=== PATIENT | male | born 1985 | race Caucasian/White ===

== ENCOUNTER 2022-12-29 18:35 | Emergency (ER) | payer OTHER, SELFPAY ==
[2022-12-29 18:43] VITALS: BP 129/74; PULSE 86; RESP 18; TEMP 36.9; O2SAT 96; BMI 30.6
--- NOTE | 2022-12-29 19:16 | ED_ITS ---
HPI - General Adult General Chief complaint: Fever Stated complaint: Fever, vomiting Time Seen by Provider: 12/29/22 18:46 Source: patient Mode of arrival: ambulatory Limitations: no limitations History of Present Illness HPI narrative: 37-year-old male coming in today concerned about nausea , vomiting and diarrhea. he has vomited multiple times throughout the night and has had multiple bouts of watery diarrhea. No blood in his vomit or stool. All started late last evening after going out to eat. Continue throughout the night and into this morning. He states that he has not vomited since this morning and has not had any diarrhea now for several hours. He is concerned because he feels wiped out. He is complaining of a headache. He states that he had a fever today of 102 that responded to Tylenol. He has been able to keep Tylenol down for the last several hours. He is afraid to eat or drink anything else. He states that his child had similar symptoms about a week and half ago. Patient takes no medications, has history of gastric bypass. Related Data Previous Rx's Medication Instructions Recorded ondansetron 4 mg disintegrating 4 mg PO Q8H PRN nausea and 12/29/22 tablet vomiting #10 tabs Allergies Allergy/AdvReac Type Severity Reaction Status Date / Time Penicillins Allergy Verified 12/29/22 18:43 shellfish derived Allergy Verified 12/29/22 18:43 Sulfa (Sulfonamide Allergy Verified 12/29/22 18:43 Antibiotics) Review of Systems Status of ROS: Reports: 10 or more systems reviewed and unremarkable except as noted in History and below [facility] Social History Smoking Status: Never smoker Do you use any of these nicotine containing products: None How often do you have a drink containing alcohol: never AUDIT-C Alcohol total score: 0 Non-prescribed substance use: denies use Exam Narrative: Exam Narrative: Well-nourished well-developed patient in no acute distress. Alert and oriented. Answers questions appropriately. Mood and affect are appropriate. Thoughts are goal oriented and rational. No tangential or magical thinking noted. Patient speaks in full sentences without needing to catch their breath. HEENT: Normocephalic atraumatic. Pupils are equally round reactive to light. Extraocular muscles are intact. Conjunctivae are moist without any icterus noted. Moist mucous membranes. Posterior pharynx is normal. Neck is soft without any lymphadenopathy or thyromegaly. No masses are appreciated. Cardiovascular: Heart is regular rate and rhythm S1 and S2 are present without any murmurs. Lungs: Clear to auscultation bilaterally no wheezes rhonchi or rales are appreciated. Patient takes deep breaths without any discomfort. Abdomen: Soft and nontender nondistended with normal bowel sounds. No guarding or rebound. No masses or organomegaly appreciated. Extremities: Bilateral lower extremities are without edema. Normal DP and PT pulses. Skin: Well perfused without any obvious rashes. Const: Vital Signs, click to edit/add: Vital Signs - 24 hr 12/29/22 18:43 12/29/22 19:28 12/29/22 19:45 Temperature 98.5 F 100.6 F H Pulse Rate [Right Pulse Oximeter] 86 83 Respiratory Rate 18 18 20 Blood Pressure [Ri ght Upper Arm] 129/74 102/63 Pulse Oximetry 96 99 98 Oxygen Delivery Me thod Room Air Room Air Room Air Course Course Hospital Course: IV was established and patient was treated with L of normal saline, Toradol and Zofran. he did feel better after treatment. His temperature went up to 100.6, he received Tylenol. Lab work was unremarkable. Vital Signs Vital signs: Initial Vital Signs Temperature 98.5 F 12/29/22 18:43 Temperature Source Temporal Artery Scan 12/29/22 18:43 Pulse Rate 86 12/29/22 18:43 Respiratory Rate 18 12/29/22 18:43 Blood Pressure 129/74 12/29/22 18:43 Blood Pressure Mean 92 12/29/22 18:43 Blood Pressure Position Sitting 12/29/22 18:43 Pulse Oximetry 96 12/29/22 18:43 Oxygen Delivery Method Room Air 12/29/22 18:43 Vital Signs Temperature 98.5 F 12/29/22 18:43 Pulse Rate 86 12/29/22 18:43 Respiratory Rate 18 12/29/22 18:43 Blood Pressure 129/74 12/29/22 18:43 Pulse Oximetry 96 12/29/22 18:43 Oxygen Delivery Method Room Air 12/29/22 18:43 Temperature 100.6 F H 12/29/22 19:45 Pulse Rate 83 12/29/22 19:45 Respiratory Rate 20 12/29/22 19:45 Blood Pressure 102/63 12/29/22 19:45 Pulse Oximetry 98 12/29/22 19:45 Oxygen Delivery Method Room Air 12/29/22 19:45 Medical Decision Making MDM Narrative Medical decision making narrative: 37-year-old male with gastroenteritis. discharged home on Zofran, discussed frequent hydration with small amounts of fluids during the day. Discussed reasons for follow-up and returning to the ER. Patient was in agreement and had no other questions. Lab Data Lab results reviewed: Yes I reviewed the patient's lab results Labs: Lab Results 12/29/22 Range/Units 19:13 WBC 7.23 (4.50-11.00) K/uL RBC 4.96 (4.30-5.90) m/uL Hgb 14.7 (13.5-17.5) gm/dL Hct 43.4 (37.0-53.0) % MCV 88 (80-100) fL MCH 30 (26-34) pg MCHC 34 (32-36) gm/dL RDW Coeff of [place] 12.5 (11.5-15.5) % Plt Count 180 (140-440) K/uL Neut % (Auto) 85.2 H (42.0-72.0) % Lymph % (Auto) 6.2 L (20-44) % [place] % (Auto) 8.4 (0.0-11.0) % Eos % (Auto) 0.0 (0.0-7.0) % Baso % (Auto) 0.1 (0.0-3.0) % Neut # (Auto) 6.20 (1.7-7.0) K/uL Lymph # (Auto) 0.40 L (0.90-2.90) K/uL [place] # (Auto) 0.60 (0.00-0.90) K/UL Eos # (Auto) 0.00 (0.00-0.50) K/uL Baso # (Auto) 0.01 (0.00-0.30) K/uL Sodium 136 (135-149) mmol/L Potassium 3.5 L (3.6-5.1) mmol/L Chloride 103 (96-114) mmol/L Carbon Dioxide 25 (20-32) mmol/L BUN 9 (5-24) mg/dL Creatinine 0.7 (0.5-1.5) mg/dL Estimated Creat Clear 167.99 Estimated GFR 122 ml/min Glucose 111 (60-115) mg/dL Calcium 8.9 (8.4-10.6) mg/dL Total Bilirubin 2.0 H (0.1-1.5) mg/dL Direct Bilirubin 0.2 (0.0-0.5) mg/dL AST 31 (12-35) U/L ALT 23 (4-50) U/L Alkaline Phosphatase 62 (40-150) U/L Total Protein 6.8 (6.0-8.3) g/dL Albumin 4.1 (3.3-5.0) g/dL Lipase 30 (23-300) U/L Discharge Plan Discharge Clinical Impression: Gastroenteritis Patient Disposition: Home, Self-Care Condition: Stable Additional Instructions: make sure to stay hydrated by drinking small amounts of fluids very frequently throughout the day. Okay to use ibuprofen and Tylenol as needed for elevated temperatures. Prescriptions: New ondansetron 4 mg tablet,disintegrating 4 mg PO Q8H PRN (Reason: nausea and vomiting) Qty: 10 0RF Stand Alone Forms: [facility] Info Instructions
[2022-12-29] MEDS: 0.9 % SODIUM CHLORIDE 1000 ml 1,000 ML IV (19:17)
[2022-12-29] MEDS: ONDANSETRON 2 MG/ML inj 4 MG IVP (19:17)
[2022-12-29] MEDS: KETOROLAC 30 MG/ML inj IVP (19:17)
[2022-12-29 19:20] LABS: Basophils Absolute Auto 0.01 K/uL (0.00-0.30); Basophils Percent Auto 0.1 % (0.0-3.0); Hematocrit 43.4 % (37.0-53.0); Hemoglobin* 14.7 gm/dL (13.5-17.5); Immature Granulocytes Abs Auto 0.01 K/uL (0.00-0.30); Immature Granulocytes Pct Auto 0.1 %; Lymphocytes Percent Auto 6.2 % (20-44); Mean Corpuscular HGB Conc 34 gm/dL (32-36); Mean Corpuscular Hemoglobin 30 pg (26-34); Mean Corpuscular Volume 88 fL (80-100); Monocytes Percent Auto 8.4 % (0.0-11.0); Neutrophils Percent Auto 85.2 % (42.0-72.0); Platelet Count* 180 K/uL (140-440); RDW Coefficient of Variation % 12.5 % (11.5-15.5); Red Blood Count 4.96 m/uL (4.30-5.90); White Blood Count* 7.23 K/uL (4.50-11.00)
[2022-12-29 19:28] VITALS: RESP 18; O2SAT 99
[2022-12-29 19:35] LABS: Albumin* 4.1 g/dL (3.3-5.0); Chloride* 103 mmol/L (96-114); Potassium* 3.5 mmol/L (3.6-5.1); Sodium* 136 mmol/L (135-149)
[2022-12-29 19:37] LABS: Creatinine* 0.7 mg/dL (0.5-1.5); Est. Creatinine Clearance* 167.99; Estimated Glomerular Filt Rate 122 ml/min
[2022-12-29 19:38] LABS: Alanine Aminotransferase* 23 U/L (4-50); Alkaline Phosphatase* 62 U/L (40-150); Aspartate Amino Transferase* 31 U/L (12-35); Bilirubin Direct* 0.2 mg/dL (0.0-0.5); Blood Urea Nitrogen* 9 mg/dL (5-24); Calcium* 8.9 mg/dL (8.4-10.6); Carbon Dioxide* 25 mmol/L (20-32); Glucose* 111 mg/dL (60-115); Lipase* 30 U/L (23-300); Total Protein* 6.8 g/dL (6.0-8.3)
[2022-12-29 19:45] VITALS: BP 102/63; PULSE 83; RESP 20; TEMP 38.1; O2SAT 98
[2022-12-29 19:57] LABS: Slide Review Reflex No
[2022-12-29] MEDS: ACETAMINOPHEN 500 MG TABLET 1000 MG PO (20:11)
== END 2022-12-29 20:19 | disposition home or self-care (01) ==
PROVIDERS: Emergency Provider Family Medicine
DX: K52.9 Noninfective gastroenteritis and colitis, unspecified (principal)
CPT/HCPCS: 36415; 80048; 80076; 83690; 85025; 96374; 96375; 99283; 99284; A9270; J1885; J2405; J7030

== ENCOUNTER 2023-03-30 10:24 | Emergency (ER) | payer OTHER, SELFPAY ==
[2023-03-30 10:30] VITALS: BP 109/68; PULSE 75; RESP 18; TEMP 36.5; O2SAT 98; BMI 30.2
--- NOTE | 2023-03-30 10:59 | ED.BACK ---
HPI - Back Pain/Injury General Chief Complaint: Back Injury/Pain Stated Complaint: back pain/yesterday at work Time Seen by Provider: 03/30/23 10:52 History of Present Illness HPI Narrative: This 38-year-old male comes in reporting low back pain after an injury that occurred yesterday. 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 He does not report any pain radiating down either leg. He has normal range of motion but reports pain in his low back. Related Data Previous Rx's Medication Instructions Recorded ondansetron 4 mg disintegrating 4 mg PO Q8H PRN nausea and 12/29/22 tablet vomiting #10 tabs cyclobenzaprine 10 mg tablet 10 mg PO TID #15 tabs 03/30/23 ketorolac 10 mg tablet 10 mg PO Q8H 5 days #15 tabs 03/30/23 Allergies Allergy/AdvReac Type Severity Reaction Status Date / Time Penicillins Allergy Verified 12/29/22 18:43 shellfish derived Allergy Verified 12/29/22 18:43 Sulfa (Sulfonamide Allergy Verified 12/29/22 18:43 Antibiotics) Review of Systems Status of ROS: Reports: 10 or more systems reviewed and unremarkable except as noted in History and below Narrative: Constitutional: No fevers, no weight gain or loss. Eyes: No discharge. No vision changes. HENT: No congestion, no sore throat, no ear pain. Cardiovascular: No chest pain, no palpitations. Respiratory: No shortness of breath, no wheezes, no cough. Gastrointestinal: No abdominal pain, no vomiting, no diarrhea. Genitourinary: No dysuria, no hematuria. Musculoskeletal: Normal range of motion. Low back pain as described above. Pain does not radiate down either leg. Skin: No rashes, no pruritis. Neurological: No dizziness, weakness, sensory change, speech change. Endo/Heme/Allergies: No bruising or bleeding. No polydipsia. Pysch: no suicidality, no anxiety, no insomnia. All other systems reviewed and are negative. [facility] Social History Smoking Status: Current some day smoker Do you use any of these nicotine containing products: Vaping Products Second hand tobacco smoke exposure: No How often do you have a drink containing alcohol: never How often do you have six or more drinks on one occasion: Never AUDIT-C Alcohol total score: 0 Non-prescribed substance use: denies use service: No Exam Narrative: Exam Narrative: Constitutional: Well-developed, well-nourished, no acute distress. HEENT: Normocephalic, atraumatic. Neck: Normal range of motion. Nontender. Supple. Heart: Intact distal pulses. Lungs: No chest discomfort. No wheezes, rhonchi, or rales. Abdomen: Nontender. Back: Normal range of motion. Diffuse pain localized across the lower back. No pain radiating down either leg. Extremities: Normal range of motion. No injury. Skin: Intact. No rash. Warm. No erythema or pallor. Neurologic: No altered sensation. No weakness. Alert and oriented. Psychiatric: No suicidality. No anxiety or depression. No insomnia. Nursing notes and vitals signs are reviewed. Const: Vital Signs, click to edit/add: Vital Signs - 24 hr 03/30/23 10:30 Temperature 97.7 F Pulse Rate [Pulse Oximeter] 75 Respiratory Rate 18 Blood Pressure [Ri ght Upper Arm] 109/68 Pulse Oximetry 98 Oxygen Delivery Me thod Room Air Course Vital Signs Vital signs: Initial Vital Signs Temperature 97.7 F 03/30/23 10:30 Temperature Source Temporal Artery Scan 03/30/23 10:30 Pulse Rate 75 03/30/23 10:30 Pulse Rhythm Regular 03/30/23 10:30 Respiratory Rate 18 03/30/23 10:30 Blood Pressure 109/68 03/30/23 10:30 Blood Pressure Mean 81 03/30/23 10:30 Blood Pressure Position Supine 03/30/23 10:30 Pulse Oximetry 98 03/30/23 10:30 Oxygen Delivery Method Room Air 03/30/23 10:30 Vital Signs Temperature 97.7 F 03/30/23 10:30 Pulse Rate 75 03/30/23 10:30 Respiratory Rate 18 03/30/23 10:30 Blood Pressure 109/68 03/30/23 10:30 Pulse Oximetry 98 03/30/23 10:30 Oxygen Delivery Method Room Air 03/30/23 10:30 Temperature 97.7 F 03/30/23 10:30 Pulse Rate 75 03/30/23 10:30 Respiratory Rate 18 03/30/23 10:30 Blood Pressure 109/68 03/30/23 10:30 Pulse Oximetry 98 03/30/23 10:30 Oxygen Delivery Method Room Air 03/30/23 10:30 MDM - Back Pain/Injury MDM Narrative Medical decision making narrative: This 38-year-old male has low back pain due to a muscle strain when lifting something heavy yesterday in an awkward position. He is not showing any signs of radiculopathy. There was not a mechanism of injury that mandates imaging studies at this time. The patient received prescriptions for Toradol and Flexeril. I recommended following [facility] with [facility] if not improving. Discharge Plan Discharge Clinical Impression: Strain of lumbar region Patient Disposition: Home, Self-Care Condition: Unchanged Additional Instructions: Take medication as needed and directed. Increase activity as tolerated. Follow up with [facility] if not improving. Call [phone] for appointment. Prescriptions: New cyclobenzaprine 10 mg tablet 10 mg PO TID Qty: 15 0RF ketorolac 10 mg tablet 10 mg PO Q8H 5 Days Qty: 15 0RF No Action ondansetron 4 mg tablet,disintegrating 4 mg PO Q8H PRN (Reason: nausea and vomiting) Qty: 10 0RF Follow Up/Referrals: Provider,Not a Local [Primary Care Provider] - Stand Alone Forms: [employer] Info Instructions
== END 2023-03-30 11:17 | disposition home or self-care (01) ==
LOC: ED 11:11
PROVIDERS: Emergency Provider Emergency Medicine Emergency Medical Services
DX: S39.012A Strain of muscle, fascia and tendon of lower back, initial encounter (principal); X50.0XXA Overexertion from strenuous movement or load, initial encounter
CPT/HCPCS: 99283; 99284

== ENCOUNTER 2023-06-16 21:59 | Emergency (ER) | payer OTHER, SELFPAY ==
[2023-06-16 22:13] VITALS: BP 110/95; PULSE 107; RESP 16; TEMP 37.6; O2SAT 96; BMI 32.1
--- NOTE | 2023-06-16 22:44 | ED_ITS ---
HPI - General Adult General Date Seen: 06/16/23 Chief complaint: Headache/Migraine Stated complaint: chills, body and headache Time Seen by Provider: 06/16/23 22:32 History of Present Illness HPI narrative: This is a 38-year-old generally healthy male accompanied to the ER today by his girlfriend. He is here with symptoms including (most prominently) headache, along with nasal congestion, mild sore throat, dry cough. Symptoms began yesterday morning with a mild stuffy nose. Yesterday evening is at a began. It started gradually. It got worse overnight was fairly bothersome today. He took some Midol and was able to go to work. Today he had ongoing stuffy nose, mild dry cough. No chest pain or shortness of breath. Mild sore throat. No nausea or vomiting. No rash. He had similar issues and subjectively felt hot but did not have an objectively measured high fever. This evening his headache is worsened more bother him some. He does not feel like it be able to sleep. He says it is like an intermittent pressure affecting both sides of his forehead. No neck stiffness. No confusion. No vomiting. No blurry vision. No rash. He had 1 co-worker who was sick last week but he does not know for sure what illness his co-worker had Related Data Previous Rx's Medication Instructions Recorded ondansetron 4 mg disintegrating 4 mg PO Q8H PRN nausea and 12/29/22 tablet vomiting #10 tabs Allergies Allergy/AdvReac Type Severity Reaction Status Date / Time Penicillins Allergy Verified 12/29/22 18:43 shellfish derived Allergy Verified 12/29/22 18:43 Sulfa (Sulfonamide Allergy Verified 12/29/22 18:43 Antibiotics) [facility] Social History Smoking Status: Current some day smoker Do you use any of these nicotine containing products: Vaping Products Second hand tobacco smoke exposure: No How often do you have a drink containing alcohol: never How often do you have six or more drinks on one occasion: Never AUDIT-C Alcohol total score: 0 Non-prescribed substance use: denies use service: No Exam Narrative: Exam Narrative: Constitutional: Appears well-developed and well-nourished. Alert. Conversant. Non toxic. HENT: Head: Atraumatic. No depressed skull fracture, Raccoon Eyes, Chowdary's sign, or hemotympanum. Face normal. TMs normal Right ear: Mastoid, pinna, canal normal. TM is erythematous and bulging. There is some opaque fluid behind the TM. Left ear: Mastoid and PIN are normal. Small amount of dark brown material in the canal which could be cerumen or possibly a small amount of scab blood. TM is actually normal. Nose: Nonpurulent rhinorrhea, otherwise Nose normal. Mouth/Throat: Oral mucosa is clear and moist. no trismus. Pharynx normal. Tonsils symmetric. No tonsillar enlargement, erythema, or exudate. Eyes: Conjunctivae normal. EOM normal. Pupils equal, round, and reactive to light. No scleral icterus. Neck: Normal range of motion. Neck supple. No tracheal deviation present. No stiffness or meningismus. Cardiovascular: Normal rate, regular rhythm. No gallop. No friction rub. No murmur heard. Symmetric radial artery pulses Pulmonary/Chest: Effort normal. No stridor. No respiratory distress. No wheezes. No rales. No rhonchi . No tenderness. Musculoskeletal: RUE: Normal range of motion. No tenderness. No deformity LUE: Normal range of motion. No tenderness. No deformity RLE: Normal range of motion. No edema. No tenderness. No deformity LLE: Normal range of motion. No edema. No tenderness. No deformity Lymph: No cervical adenopathy. Neurological: Alert and oriented to person, place, and time. Normal strength. CN II-VII intact. No sensory deficit. GCS eye subscore is 4. GCS verbal subscore is 5. GCS motor subscore is 6. Normal coordination Skin: Skin is warm and dry. No rash noted. No pallor. Normal capillary refill. Psychiatric: Normal mood. Normal affect. Const: Vital Signs, click to edit/add: Vital Signs - 24 hr 06/16/23 22:13 Temperature 99.7 F H Pulse Rate [Pulse Oximeter] 107 H Respiratory Rate 16 Blood Pressure [Ri ght Upper Arm] 110/95 H Pulse Oximetry 96 Oxygen Delivery Me thod Room Air Course Course ED Course: Recheck-says his headache is getting better after the Toradol. Vital Signs Vital signs: Initial Vital Signs Temperature 99.7 F H 06/16/23 22:13 Temperature Source Temporal Artery Scan 06/16/23 22:13 Pulse Rate 107 H 06/16/23 22:13 Pulse Rhythm Regular 06/16/23 22:13 Respiratory Rate 16 06/16/23 22:13 Blood Pressure 110/95 H 06/16/23 22:13 Blood Pressure Mean 100 06/16/23 22:13 Blood Pressure Position Sitting 06/16/23 22:13 Pulse Oximetry 96 06/16/23 22:13 Oxygen Delivery Method Room Air 06/16/23 22:13 Vital Signs Temperature 99.7 F H 06/16/23 22:13 Pulse Rate 107 H 06/16/23 22:13 Respiratory Rate 16 06/16/23 22:13 Blood Pressure 110/95 H 06/16/23 22:13 Pulse Oximetry 96 06/16/23 22:13 Oxygen Delivery Method Room Air 06/16/23 22:13 Temperature 99.7 F H 06/16/23 22:13 Pulse Rate 107 H 06/16/23 22:13 Respiratory Rate 16 06/16/23 22:13 Blood Pressure 110/95 H 06/16/23 22:13 Pulse Oximetry 96 06/16/23 22:13 Oxygen Delivery Method Room Air 06/16/23 22:13 Medications Administered Medications: Discontinued Medications Generic Name Dose Route Start Last Admin Trade Name Freq PRN Reason Stop Dose Admin Sodium Chloride 1,000 mls @ 1,000 mls/hr 06/16/23 22:45 06/17/23 00:09 0.9 % Sodium Chloride 1000 Ml IV 06/16/23 23:44 Infused .Q1H SOMMER Infusion Ketorolac Tromethamine 15 mg 06/16/23 22:43 06/16/23 23:03 Ketorolac 15 Mg/Ml Inj IVP 06/16/23 22:44 15 mg ONCE ONE Administration Metoclopramide HCl 10 mg 06/16/23 22:43 06/16/23 23:13 Metoclopramide Hcl 5 Mg/Ml Inj IVP 06/16/23 22:44 10 mg ONCE ONE Administration Medical Decision Making MDM Narrative Medical decision making narrative: This patient presents for evaluation of headache associated with body aches, chills, cough, nasal congestion, mild sore throat. This is consistent with an upper respiratory tract infection. Viral testing positive for coronavirus but negative for influenza a and negative for RSV.. There is no signs at this point of serious bacterial infection such as OM, RPA, epiglottitis, [employer], strep pharyngitis, pneumonia, sinusitis, meningitis, bacteremia, serious bacterial infection. Given clear lungs, fever curve, no hypoxia and no respiratory distress I do not feel a CXR is indicated at this point as the probability of bacterial pneumonia is very unlikely. There are no gastrointestinal symptoms at this point. Headache was uncomfortable for the patient and not responding to at home remedies, prompting his visit here to the ER. Headache is much improved after Toradol and fluids administered here in the ER. He feels comfortable discharging to home. At this point I do not think the headache represents a serious secondary pathology such as meningitis, subarachnoid, stroke, intracranial hemorrhage. At this point I do not think he needs advanced imaging or lumbar puncture. Suspect the headache is probably related to his coronavirus. In terms of treating COVID he has been vaccinated had 1 booster but has not gotten his most recent boosters. He has had 1 previous coronavirus infection. He is otherwise healthy with no long-term medical conditions or any underlying heart or lung disease. Overall is not a ?high risk? patient for severe illness from COVID. Therefore, although he is in the 1st 5 days of illness, he would not be meet criteria for treatment with Paxlovid. Discussed with the patient and his girlfriend potential risk of worsening is low (but not 0). Precautions for return to the ER reviewed. Close followup with primary care physician is indicated. Return to ED for fever > 103, protracted vomiting, confusion, worsening cough, trouble breathing, hypoxia, or other worsening. Supportive therapy with fluids, rest, isolation. Acetaminophen or ibuprofen if needed for body aches and headache. Prescription for [place] ([employer], 10 tabs) provided for breakthrough pain. Precautions for return to the ER. Lab Data Labs: Lab Results 06/16/23 Range/Units 22:10 SARS-CoV-2 (PCR) POSITIVE SARS-CoV-2 A (Negative) Influenza Type A (PCR) Negative PCR FLU A (Negative) Influenza Type B (PCR) Negative PCR FLU B (Negative) RSV (PCR) Negative PCR RSV (Negative) Discharge Plan Discharge Clinical Impression: COVID-19, Headache Patient Disposition: Home, Self-Care Condition: Stable Instructions: COVID-19 (Coronavirus Disease 2019) (ED), COVID-19: Slow the Coronavirus Spread (ED) Additional Instructions: As we discussed, please return to the ER right away if you have worsening symptoms especially severe headache, confusion, worsening cough or trouble breathing, chest pain, high fever, dehydration, or oxygen measurements below 90%. Drink plenty of fluids. Use [id number] medications such as acetaminophen or ibuprofen if needed for headache and body aches. Use prescription pain killers ([place]) if needed for severe pain. Be careful with [place] because it causes drowsiness, dizziness, and you should not drive. [place] also can cause constipation and can be addictive. Prescriptions: No Action ondansetron 4 mg tablet,disintegrating 4 mg PO Q8H PRN (Reason: nausea and vomiting) Qty: 10 0RF Follow Up/Referrals: Provider,Not a Local [Primary Care Provider] - Stand Alone Forms: [employer] Info Instructions
[2023-06-16 22:52] LABS: PCR FLU A Negative PCR FLU A (Negative); PCR FLU B Negative PCR FLU B (Negative); PCR RSV Negative PCR RSV (Negative)
[2023-06-16 22:54] LABS: SARS PCR* POSITIVE SARS-CoV-2 (Negative)
[2023-06-16] MEDS: KETOROLAC 15 MG/ML inj IVP (23:03)
[2023-06-16] MEDS: 0.9 % SODIUM CHLORIDE 1000 ml 1,000 ML IV (23:03)
[2023-06-16] MEDS: METOCLOPRAMIDE HCL 5 MG/ML INJ 10 MG IVP (23:13)
== END 2023-06-17 00:15 | disposition home or self-care (01) ==
PROVIDERS: Emergency Provider Emergency Medicine
DX: R51.9 Headache, unspecified (principal); U07.1 COVID-19
CPT/HCPCS: 87631; 96374; 96375; 99283; 99284; J1885; J2765; J7030

== ENCOUNTER 2023-06-26 19:19 | Emergency (ER) | payer OTHER, SELFPAY ==
[2023-06-26 19:34] VITALS: BP 111/63; PULSE 111; RESP 18; TEMP 37.7; O2SAT 95
--- NOTE | 2023-06-26 21:55 | ED_ITS ---
HPI - General Adult General Chief complaint: Unspecified Complaint, Adult Stated complaint: Cold Sweats, headache Time Seen by Provider: 06/26/23 21:15 History of Present Illness HPI narrative: This is a generally healthy 38-year-old male who returns to the ER today for evaluation headache, nasal congestion, cough. I saw him here in the ER about 10 days ago with similar symptoms. At that time he was positive for coronavirus. Not falling into a ?high risk? category he was treated supportively. We treated his headache with Toradol, Reglan, Benadryl and improved here in the ER. Discharged home with hydrocodone. He was taking that 3 times a day for a couple of days well as body aches and headache for bad and he says his symptoms were well managed. Says overall his symptoms have gotten quite a bit better. Cough was improved. Headache was gone he was able to go back to work. He still has a mild cough and sore throat. Yesterday he was at work. 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 Ever since then he has had worsening nasal congestion, recurrent cough, and headache. He does not have any neck stiffness. No confusion. No bloody nose. No sore throat. He has mild cough but is not short of breath. No nausea or vomiting. No diarrhea. No rash. No other known new sick exposures but several family members have now fallen ill with coronavirus. Related Data Previous Rx's Medication Instructions Recorded ondansetron 4 mg disintegrating 4 mg PO Q8H PRN nausea and 12/29/22 tablet vomiting #10 tabs Allergies Allergy/AdvReac Type Severity Reaction Status Date / Time Penicillins Allergy Verified 12/29/22 18:43 shellfish derived Allergy Verified 12/29/22 18:43 Sulfa (Sulfonamide Allergy Verified 12/29/22 18:43 Antibiotics) [facility] Social History Smoking Status: Current some day smoker Do you use any of these nicotine containing products: Vaping Products Second hand tobacco smoke exposure: No How often do you have a drink containing alcohol: never How often do you have six or more drinks on one occasion: Never AUDIT-C Alcohol total score: 0 Non-prescribed substance use: denies use service: No Exam Narrative: Exam Narrative: Constitutional: Appears well-developed and well-nourished. Alert. Conversant. Non toxic. He remembers me from before and complements me on my medical care. HENT: Head: Atraumatic. No depressed skull fracture, Raccoon Eyes, Chowdary's sign, or hemotympanum. Face normal. TMs normal Nose: External Nose normal. He does have a small amount of inflammation of the mucosal lining in both nares. No purulent drainage. No epistaxis. Right ear: Mastoid, pinna, canal, TM normal. Left ear: Mastoid, Hanks, canal normal. TM is erythematous, bulging and consistent with otitis media. No evidence for perforation. Mouth/Throat: Oral mucosa is clear and moist. no trismus. Pharynx normal. Tonsils symmetric. No tonsillar enlargement, erythema, or exudate. Eyes: Conjunctivae normal. EOM normal. Pupils equal, round, and reactive to light. No scleral icterus. Neck: Normal range of motion. Neck supple. No tracheal deviation present. Cardiovascular: Normal rate, regular rhythm. No gallop. No friction rub. No murmur heard. Symmetric radial artery pulses Pulmonary/Chest: Effort normal. No stridor. No respiratory distress. No wheezes. No rales. No rhonchi . No tenderness. Abdominal: Soft. No distension. No mass. No tenderness. No rebound. No guarding. Musculoskeletal: RUE: Normal range of motion. No tenderness. No deformity LUE: Normal range of motion. No tenderness. No deformity RLE: Normal range of motion. No edema. No tenderness. No deformity LLE: Normal range of motion. No edema. No tenderness. No deformity Lymph: No cervical adenopathy. Neurological: Alert and oriented to person, place, and time. Normal strength. CN II-VII intact. No sensory deficit. GCS eye subscore is 4. GCS verbal subscore is 5. GCS motor subscore is 6. Normal coordination Skin: Skin is warm and dry. No rash noted. No pallor. Normal capillary refill. Psychiatric: Normal mood. Normal affect. Const: Vital Signs, click to edit/add: Vital Signs - 24 hr 06/26/23 19:34 Temperature 99.9 F H Pulse Rate [Left P ulse Oximeter] 111 H Respiratory Rate 18 Blood Pressure [Ri ght Upper Arm] 111/63 Pulse Oximetry 95 Oxygen Delivery Me thod Room Air Course Vital Signs Vital signs: Initial Vital Signs Temperature 99.9 F H 06/26/23 19:34 Temperature Source Temporal Artery Scan 06/26/23 19:34 Pulse Rate 111 H 06/26/23 19:34 Pulse Rhythm Regular 06/26/23 19:34 Respiratory Rate 18 06/26/23 19:34 Blood Pressure 111/63 06/26/23 19:34 Blood Pressure Mean 79 06/26/23 19:34 Blood Pressure Position Sitting 06/26/23 19:34 Pulse Oximetry 95 06/26/23 19:34 Oxygen Delivery Method Room Air 06/26/23 19:34 Vital Signs Temperature 99.9 F H 06/26/23 19:34 Pulse Rate 111 H 06/26/23 19:34 Respiratory Rate 18 06/26/23 19:34 Blood Pressure 111/63 06/26/23 19:34 Pulse Oximetry 95 06/26/23 19:34 Oxygen Delivery Method Room Air 06/26/23 19:34 Temperature 99.9 F H 06/26/23 19:34 Pulse Rate 111 H 06/26/23 19:34 Respiratory Rate 18 06/26/23 19:34 Blood Pressure 111/63 06/26/23 19:34 Pulse Oximetry 95 06/26/23 19:34 Oxygen Delivery Method Room Air 06/26/23 19:34 Medical Decision Making MDM Narrative Medical decision making narrative: This patient presents for evaluation of headache, nasal congestion, cough, sore throat. He was recently here in the ER about 10 days ago with a similar URI and at that time test positive for COVID. He was treated supportively because he does not meeting the cry teary a for high risk, does not meet criteria for Paxlovid. Symptoms had been improving and then worsened again starting yesterday. With recent positive COVID test will not repeat COVID PCR today. Lung sounds are clear. No evidence for pneumonia. At this point oxygen saturations are normal and no signs of severe life-threatening coronavirus. He does note that his headache is primarily in the facial region this time, whereas previously it has been more diffuse. At this point no evidence for meningitis or encephalitis. Consider possibility for bacterial sinusitis with this biphasic illness after a recent URI. Patient also has exam findings consistent with an otitis media on the left ear. Will treat him with a course of doxycycline for his infection because he is allergic to penicillins. Supportive care with pain medication. Opiate precautions reviewed. Instymeds prescriptions for hydrocodone. There is no signs at this point of serious bacterial infection such as RPA, epiglottitis, [employer], strep pharyngitis, pneumonia, meningitis, bacteremia, serious bacterial infection. Given clear lungs, fever curve, no hypoxia and no respiratory distress I do not feel a CXR is indicated at this point as the probability of bacterial pneumonia is very unlikely. Additionally, community- acquired pneumonia would be covered adequately by prescribed doxycycline. There are no gastrointestinal symptoms at this point and no signs of dehydration. Close followup with primary care physician is indicated. Return to ED for fever > 103, protracted vomiting, confusion, or other worsening. Discharge Plan Discharge Clinical Impression: Acute left otitis media, Headache, Sinusitis Patient Disposition: Home, Self-Care Condition: Stable Instructions: Sinusitis (ED), Ear Infection (ED), Acute Headache (DC) Additional Instructions: As we discussed, please come back to the ER right away if you have worsening headache, confusion, blurry vision, vomiting, fever over 102, neck stiffness, worsening cough or trouble breathing, or if you have any concerns. Use caution with hydrocodone because it can cause drowsiness. Do not drive or operate machinery for 6 hours after taking that medication. Prescriptions: No Action ondansetron 4 mg tablet,disintegrating 4 mg PO Q8H PRN (Reason: nausea and vomiting) Qty: 10 0RF Follow Up/Referrals: Provider,Not a Local [Primary Care Provider] - Stand Alone Forms: [employer] Info Instructions
== END 2023-06-26 22:01 | disposition home or self-care (01) ==
LOC: ED 21:53
PROVIDERS: Emergency Provider Emergency Medicine
DX: H66.92 Otitis media, unspecified, left ear (principal); R51.9 Headache, unspecified; J32.0 Chronic maxillary sinusitis
CPT/HCPCS: 99283

== ENCOUNTER 2023-07-30 19:21 | Emergency (ER) | payer OTHER, SELFPAY ==
[2023-07-30 19:29] VITALS: BP 119/75; PULSE 76; RESP 18; TEMP 36.6; O2SAT 100; BMI 32.1
--- NOTE | 2023-07-30 19:43 | ED_ITS ---
HPI - General Adult General Chief complaint: Head Injury/Pain Stated complaint: head injury Time Seen by Provider: 07/30/23 19:24 Source: patient Mode of arrival: ambulatory Limitations: no limitations History of Present Illness HPI narrative: 38-year-old male presenting today with a laceration of his scalp. He states that he bent over to get something in the garage and hit his head on some metal. This occurred approximately 4 hours ago. He denies headache or confusion. No other concerns. Last tetanus was in 2012. Related Data Previous Rx's Medication Instructions Recorded ondansetron 4 mg disintegrating 4 mg PO Q8H PRN nausea and 12/29/22 tablet vomiting #10 tabs Allergies Allergy/AdvReac Type Severity Reaction Status Date / Time Penicillins Allergy Verified 12/29/22 18:43 shellfish derived Allergy Verified 12/29/22 18:43 Sulfa (Sulfonamide Allergy Verified 12/29/22 18:43 Antibiotics) Review of Systems Status of ROS: Reports: 6 or more systems reviewed and unremarkable except as noted in History and below PFSH PFS Social History Smoking Status: Current some day smoker Do you use any of these nicotine containing products: Vaping Products Second hand tobacco smoke exposure: No How often do you have a drink containing alcohol: never How often do you have six or more drinks on one occasion: Never AUDIT-C Alcohol total score: 0 Non-prescribed substance use: denies use service: No Exam Narrative: Exam Narrative: Well-nourished well-developed patient in no acute distress. Alert and oriented. Answers questions appropriately. Mood and affect are appropriate. Thoughts are goal oriented and rational. No tangential or magical thinking noted. Patient speaks in full sentences without needing to catch his breath. HEENT: Normocephalic. Pupils are equally round reactive to light. Extraocular muscles are intact. Conjunctivae are moist without any icterus noted. Moist mucous membranes. Patient has approximately a 1/2 cm laceration to the top left scalp. Laceration goes through the dermis into the subcutaneous tissue, does not penetrate through the subcutaneous tissue. There is no bone visible. Const: Vital Signs, click to edit/add: Vital Signs - 24 hr 07/30/23 19:29 Temperature 97.9 F Pulse Rate [Pulse Oximeter] 76 Respiratory Rate 18 Blood Pressure [Ri ght Upper Arm] 119/75 Pulse Oximetry 100 Oxygen Delivery Me thod Room Air Course Course ED Course: Laceration was anesthetized lidocaine, wound irrigated and explored. Two sutures with 3-0 Ethilon were placed without difficulty and good skin approximation. Vital Signs Vital signs: Initial Vital Signs Temperature 97.9 F 07/30/23 19:29 Temperature Source Temporal Artery Scan 07/30/23 19:29 Pulse Rate 76 07/30/23 19:29 Respiratory Rate 18 07/30/23 19:29 Blood Pressure 119/75 07/30/23 19:29 Blood Pressure Mean 89 07/30/23 19:29 Blood Pressure Position Sitting 07/30/23 19:29 Pulse Oximetry 100 07/30/23 19:29 Oxygen Delivery Method Room Air 07/30/23 19:29 Vital Signs Temperature 97.9 F 07/30/23 19:29 Pulse Rate 76 07/30/23 19:29 Respiratory Rate 18 07/30/23 19:29 Blood Pressure 119/75 07/30/23 19:29 Pulse Oximetry 100 07/30/23 19:29 Oxygen Delivery Method Room Air 07/30/23 19:29 Temperature 97.9 F 07/30/23 19:29 Pulse Rate 76 07/30/23 19:29 Respiratory Rate 18 07/30/23 19:29 Blood Pressure 119/75 07/30/23 19:29 Pulse Oximetry 100 07/30/23 19:29 Oxygen Delivery Method Room Air 07/30/23 19:29 Medical Decision Making MDM Narrative Medical decision making narrative: 38-year-old male lacerated just scalp, sutured per above. We discussed wound hygiene, signs and symptoms of infection, reasons to return for follow-up in suture rule approximately 1 week. Tetanus shot was updated. Discharge Plan Discharge Clinical Impression: Laceration Patient Disposition: Home, Self-Care Condition: Improved Additional Instructions: Keep wound clean and dry. Okay to shower like he normally would but do not soak the wound. Watch for signs of infection which include redness that spreads around the scalp or into the face. If this occurs follow-up with your doctor right away or return to the ER. You should have your sutures removed in approximately 1 week in the clinic with your primary care provider. Okay to take ibuprofen or Tylenol as needed for discomfort. Prescriptions: No Action ondansetron 4 mg tablet,disintegrating 4 mg PO Q8H PRN (Reason: nausea and vomiting) Qty: 10 0RF Follow Up/Referrals: Provider,Not a Local [Primary Care Provider] - Stand Alone Forms: [employer] Info Instructions
[2023-07-30] MEDS: TETANUS/DIPHTH/PERTUSSIS 0.5 ML SYRINGE IM (19:49)
[2023-07-30] MEDS: lidocaine HCL 2 % MULTIDOSE 20 ML VIAL INJECTION (19:49)
[2023-07-30 19:56] VITALS: BP 115/68; PULSE 79; RESP 18; TEMP 36.8; O2SAT 100
[2023-07-30 19:57] VITALS: BP 115/68; PULSE 79; RESP 18; TEMP 36.8
== END 2023-07-30 19:58 | disposition home or self-care (01) ==
LOC: ED 19:53
PROVIDERS: Emergency Provider Family Medicine
DX: S01.01XA Laceration without foreign body of scalp, initial encounter (principal); W22.8XXA Striking against or struck by other objects, initial encounter; Z23 Encounter for immunization
CPT/HCPCS: 12001; 90471; 90715; 99283

== ENCOUNTER 2024-08-06 19:13 | Emergency (ER) | payer OTHER, SELFPAY ==
--- OUTSIDE RECORDS SUMMARY | 2024-08-06 19:15 | XMS_ITS | Clinical Summary ---
Author Organization [facility] Address [address] [place] [address] Care Team Providers Care [employer] Architect Name Role Phone Unavailable Primary Care Provider Unavailabl e Source Comments You are receiving this document as you are listed as the primary care provider,follow-up provider, or the patient has been referred to you for consultation.This is in compliance with the Medicare andMedicaid EHR Incentive Program,which states Providers who transition their patient to another setting of careor provider of care or refers their patient to another provider of care shouldprovide summary care record for each transition of care or referral. [facility] Allergies Active Allergy Reactions Criticality Noted Date Comments Penicillins Hives High 02/17/2023 Shellfish Allergy Anaphylaxis High 02/17/2023 Sulfa Antibiotics Hives High 02/17/2023 Medications No known medications Active Problems No known active problems Immunizations Name Administration Dates Next Due DTP 10/24/1986, 6,1985, 985 Flu Vac (3+ yrs) 04/02/2010,04/24/2008 HepB Adult (Engerix-B, 20+ y rs, 3 dose series) 07/18/1999,10/08/1998,11/27/1997 MMR 10/10/1997,07/06/1986 OPV, Trivalent (Orimune or tOPV) 997,10/24/1986,1985, 985 Pfizer Monovalent 12+ 09/18/2021 Pfizer Monovalent 12+ Purple Top 11/11/2020,09/26 Td (7+ yrs) 07/13/2002,10/10/1997 Tdap 10/31/2012 Social History Tobacco Use Types Packs/Day Years Used Date Smoking Tobacco: Former Cigarettes 1 20 2 - 2020 Tobacco Cessation:Counseling Given: Not Answered Alcohol Use Standard Drinks/Week Comments Not Currently 0 (1 standard drink = 0.6 oz pur e alcohol) PHQ-2 Answer Date Recorded PHQ-2 Score 0 02/17/2023 Financial Resource Strain Answer Date R ecorded Is it hard for you to pay fo r the very basics like food, housing, medical care or heating? No 02/17/2023 Food Insecurity Answer Date Recorded Does your food run out before you have the money to buy more? No 02/17/2023 Transportation Needs Answer Date Record ed Does a lack of transportatio n keep you from your medical appointments or from getting your medications? No 023 Sex and Gender Information Value Date Recorded Sex Assigned at Not on file Gender Identity Not on file Sexual Orientation Not on file Last Filed Vital Signs Vital Sign Reading Time Taken Comments Blood Pressure 113/75 02/17/2023 8:12 AM CDT Pulse 75 02/17/2023 8:12 AM CDT Temperature - - Respiratory Rate - - Oxygen Saturation - - Inhaled Oxygen Concentration - - Weight 107.2 kg (236 lb 4.8 oz) 02/17/2023 8:12 AM CDT Height 184 cm (6' 0.44) 02/17/2023 8:12 AM CDT Body Mass Index 31.66 02/17/2023 8:12 AM CDT Plan of Treatment Health Maintenance Due Date Last Done Comments DTaP/Tdap/Td (7 - Tdap) 10/31/2022 11/01/19 13, 07/13/2002, 10/10/1997, Additional history exists COVID-19 Vaccine ( season) 2024 09/18/2021, 11/11/2020, 10/13/2020 Influenza (#1) 2024 04/02/2010, 04/24/2008 Adult Preventive Visit 02/17/2025 02/17/2023 Cholesterol 02/18/2028 02/17/2023 Zoster/Shingles (1 of 2) 2035 IPV (Polio) Completed 11/15/1996, 09/27, 1985, Additional history exists HepB Completed 07/18/1999, 09/26, 11/27/1997 HIV Screening (Preventive Services) Completed 02/17/2023 Hep C Screening (Preventive Services) Completed 02/17/2023 HPV Vaccine Aged Out No longer eligi ble based on patient's age to complete this topic HepA Aged Out No longer eligi ble based on patient's age to complete this topic Hib Aged Out No longer eligi ble based on patient's age to complete this topic MCV4 Aged Out No longer eligi ble based on patient's age to complete this topic Pneumococcal Aged Out No longer eligi ble based on patient's age to complete this topic Procedures Procedure Name Priority Date/Time Associated Diagnosis Comments HIV 1/2 AG/AB 4TH GEN Routine 02/17/2023 9:06 AM CDT Screening for HIV (human immunodeficiency virus) HEPATITIS C ANTIBODY, WITH REFLEX Routine 02/17/2023 9:06 AM CDT Need for hepatitis C screening test LIPID PANEL & DIRECT LDL (IF NEEDED) Routine 02/17/2023 9:06 AM CDT Well adult exam from Last 3 Months or Most Recently Relevant to Health Maintenance Results * HIV 1/2 Ag/Ab 4th Generation (02/17/2023 9:06 AM CDT) HIV 1/2 Antigen/Antib candice (4th generation) Negative (Non Reactive) Negative (Non Reactive) 02/17/2023 4:04 PM CDT [facility] Comment:HIV-1 p24 Antigen an d HIV-1/HIV-2 Antibody not detected Blood Venipuncture / Unknown 02/17/2023 9:06 AM CDT 02/17/2023 9:06 AM CDT Jimmie Martins PA-C LAB_1 [facility] [address] * Lipid Panel and Direct LDL(If Needed) (02/17/2023 9:06 AM CDT) Cholesterol 145 0 - 199 mg/dL 02/17/2023 12:34 PM CDT [facility] Triglyceride 80 <=149 mg/dL 02/17/2023 12:34 PM CDT [facility] HDL Cholesterol 47 >=40 mg/dL 12:34 PM CDT [facility] LDL, Calculated 82 <130 mg/dL 12:34 PM CDT [facility] Non HDL Chol, Calculated 98 <=159 mg/dL 02/17/2023 12:34 PM CDT [facility] Cholesterol/HDL Ratio 3.1 02/17/2023 12:34 PM CDT [facility] Hours Fasting 12.0 8 - 12 Hours 02/17/2023 12:34 PM CDT [facility] Blood Venipuncture / Unknown 02/17/2023 9:06 AM CDT 02/17/2023 9:06 AM CDT Jimmie Martins PA-C [facility] [address] [place] [address], [facility] [phone] [facility] [address] [place] [address], [facility] [phone] * Hepatitis C Antibody, with Reflex (02/17/2023 9:06 AM CDT) [facility] Hepatitis C Antibody Negative (Non Reactive) Negative (Non Reactive) 02/17/2023 4:04 PM CDT [facility] Comment:Antibodies to HCV no t detected. Does not exclude the possiblity of exposure to HCV. Blood Venipuncture / Unknown 02/17/2023 9:06 AM CDT 02/17/2023 9:06 AM CDT Jimmie Martins PA-C [facility] [address] [place], [place] [address] from Last 3 Months or Most Recently Relevant to Health Maintenance
[2024-08-06 19:38] VITALS: BP 117/76; PULSE 102; RESP 18; TEMP 37.9; O2SAT 95; BMI 32.1
--- NOTE | 2024-08-06 20:24 | CRLHL7_ITS ---
For Patients: As a result of the Cures Act, medical imaging exams and procedure reports are released immediately into your electronic medical record. You may view this report before your referring provider. If you have questions, please contact your health care provider. Indication: Cough Technique: Two views of the chest Comparison: None Findings/Impression: No acute cardiopulmonary process detected. Dictated by Frank Avalos MD @ 08/06/2024 9:03:49 PM (Electronically Signed)
--- NOTE | 2024-08-06 20:25 | ED_ITS ---
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 Has had intermittent sharp chest discomfort for last couple of months. He has had a cold recently and has had a slight cough. He had a viral studies done in the triage room. He has a temperature 100.3? today. He really does not have any chest pain. Now he had while cooking and was sharp and went down his sternum and then vanished. Was not really short of breath or diaphoretic. He has had no personal history of heart disease works as electro mechanical engineer does not have much discomfort when he is working. He has been sick for the last few days. This is with the congestion sinus congestion and slight cough. He notices occasional pain along his sternum when he takes a deep breath. He has had no recent travel, immobilization, or history of DVT or blood clots. Related Data Home Medications ?Medication ?Instructions ?Recorded ?Confirmed Midol 08/06/24 Previous Rx's ?Medication ?Instructions ?Recorded ondansetron 4 mg disintegrating 4 mg PO Q8H PRN nausea and 12/29/22 tablet vomiting #10 tabs Allergies Allergy/AdvReac Type Severity Reaction Status Date / Time Penicillins Allergy Verified 08/06/24 19:42 shellfish derived Allergy Verified 08/06/24 19:42 Sulfa (Sulfonamide Allergy Verified 08/06/24 19:42 Antibiotics) Review of Systems Status of ROS: Reports: 6 or more systems reviewed and unremarkable except as noted in History and below PFSH PFS Medical History No significant past medical history Surgical History No significant past surgical history Social History Smoking Status: Former smoker Do you use any of these nicotine containing products: Vaping Products Second hand tobacco smoke exposure: No How often do you have a drink containing alcohol: never How often do you have six or more drinks on one occasion: Never AUDIT-C Alcohol total score: 0 Non-prescribed substance use: marijuana (any form) service: No Exam Narrative: Exam Narrative: Objective temperature is 100.3? pulse 102 and regular resp rate 18 nonlabored O2 sat 95% on room air Alert orient x3 Throat is clear well hydrated neck is supple chest is clear no rales or wheezing heart rhythm regular 2/6 systolic murmur abdomen benign soft nontender no palpable chest wall pain he describes as long as parasternal area on the left extremities are no edema neurologic nonfocal Const: Vital Signs, click to edit/add: Vital Signs - 24 hr 08/06/24 19:38 08/06/24 21:02 08/06/24 21:03 Temperature 100.3 F H Pulse Rate 70 71 Pulse Rate [Left P ulse Oximeter] 102 H Respiratory Rate 18 0 L 27 H Blood Pressure 112/75 Blood Pressure [Ri ght Upper Arm] 117/76 Pulse Oximetry 95 98 94 Oxygen Delivery Me thod Room Air Room Air 08/06/24 21:15 08/06/24 21:30 08/06/24 21:32 Temperature Pulse Rate 78 65 Pulse Rate [Left P ulse Oximeter] Respiratory Rate 15 17 24 Blood Pressure 102/67 Blood Pressure [Ri ght Upper Arm] Pulse Oximetry 95 95 Oxygen Delivery Me thod Room Air Course Vital Signs Vital signs: Initial Vital Signs Respiratory Effort Normal 08/06/24 19:13 Respiratory Depth Normal 08/06/24 19:13 Respiratory Pattern Normal 08/06/24 19:13 Vital Signs Temperature 100.3 F H 08/06/24 19:38 Pulse Rate 102 H 08/06/24 19:38 Respiratory Rate 18 08/06/24 19:38 Blood Pressure 117/76 08/06/24 19:38 Pulse Oximetry 95 08/06/24 19:38 Oxygen Delivery Method Room Air 08/06/24 19:38 Temperature 100.3 F H 08/06/24 19:38 Pulse Rate 65 08/06/24 21:30 Respiratory Rate 24 08/06/24 21:32 Blood Pressure 102/67 08/06/24 21:32 Pulse Oximetry 95 08/06/24 21:30 Oxygen Delivery Method Room Air 08/06/24 21:32 Medications Administered Medications: Discontinued Medications Generic Name Dose Route Start Last Admin Trade Name Freq PRN Reason Stop Dose Admin Prednisone 50 mg 08/06/24 21:10 08/06/24 21:36 Prednisone 10 Mg Tablet PO 08/06/24 21:11 50 mg ONCE ONE Administration Medical Decision Making MDM Narrative Medical decision making narrative: 39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 Will check his viral studies, will check a chest x-ray, EKG, laboratory studies including troponin and D-dimer. If these are all negative I think probably some steroid medication like a Medrol Dosepak or pr ednisone be reasonable to try and help the inflammatory nature of his chest. Will see what his viral studies return. This does not sound cardiac but sounds more chest wall or inflammatory. He was comfortable assessment and workup at this time thanks Addendum 9 4:15 p.m. patient has a negative chest x-ray by my read, EKG looks like normal sinus rhythm by my read. His troponin is negative his labs look reassuring, his D-dimer is negative. He is positive for RSV, his troponin is negative as mention. At this point I think he has got RSV causing his upper respiratory symptoms, he probably has some chest wall inflammation causing the parasternal discomfort. He does not I have symptoms of coronary disease I think we could try some prednisone see if that would help him and have him follow up with regular doctor next few days see if it is working and he was in agreement with this. Return to the ER sooner as needed Lab Data Labs: Lab Results 08/06/24 08/06/24 Range/Units 19:45 20:30 WBC 9.92 (4.50-11.00) K/uL RBC 4.89 (4.30-5.90) m/uL Hgb 14.8 (13.5-17.5) gm/dL Hct 43.7 (37.0-53.0) % MCV 89 (80-100) fL MCH 30 (26-34) pg MCHC 34 (32-36) gm/dL RDW Coeff of Duran 11.8 (11.5-15.5) % Plt Count 203 (140-440) K/uL Neut % (Auto) 73.7 H (42.0-72.0) % Lymph % (Auto) 13.3 L (20-44) % [place] % (Auto) 11.8 H (0.0-11.0) % Eos % (Auto) 0.7 (0.0-7.0) % Baso % (Auto) 0.3 (0.0-3.0) % Neut # (Auto) 7.30 H (1.7-7.0) K/uL Lymph # (Auto) 1.30 (0.90-2.90) K/uL [place] # (Auto) 1.20 H (0.00-0.90) K/UL Eos # (Auto) 0.07 (0.00-0.50) K/uL Baso # (Auto) 0.03 (0.00-0.30) K/uL Abs Immat Gran (auto) 0.02 (0.00-0.30) K/uL Imm/Tot Granulo (auto) 0.2 % D-Dimer Quant (PE/DVT) 0.21 (0.00-0.50) ug/ml Sodium 135 (135-149) mmol/L Potassium 3.8 (3.6-5.1) mmol/L Chloride 103 (96-114) mmol/L Carbon Dioxide 24 (20-32) mmol/L Anion Gap 8 (7-15) mEq/L BUN 9 (5-24) mg/dL Creatinine 0.7 (0.5-1.5) mg/dL Estimated Creat Clear 164.73 Estimated GFR 120 ml/min Glucose 96 (60-115) mg/dL Calcium 9.2 (8.4-10.6) mg/dL SARS-CoV-2 (PCR) Negative SARS-CoV-2 (Negative) Influenza Type A (PCR) Negative PCR FLU A (Negative) Influenza Type B (PCR) Negative PCR FLU B (Negative) RSV (PCR) POSITIVE PCR RSV A (Negative) POC Troponin I 0.00 L (0.01-0.04) ng/ml Discharge Plan Discharge Clinical Impression: Cough, Acute chest wall pain, RSV infection Patient Disposition: Home, Self-Care Condition: Stable Instructions: RSV (Respiratory Syncytial Virus) Infection (ED) Additional Instructions: Prednisone 20 mg b.i.d. x5 days, may try some Advil periodically as well, recommend recheck with regular doctor next 5-7 days, return to ED sooner problems concerns worsening. Good hand washing and probably wear a mask with your RSV infection. Activity Level: Light activity Discharge Diet: Regular Prescriptions: No Action ondansetron 4 mg tablet,disintegrating 4 mg PO Q8H PRN (Reason: nausea and vomiting) Qty: 10 0RF Midol Follow Up/Referrals: Provider,Not a Local [Primary Care Provider] - Stand Alone Forms: [employer] Info Instructions
--- OUTSIDE RECORDS SUMMARY | 2024-08-06 20:30 | XMS_ITS | Clinical Summary ---
Author Organization [facility] Address [address] [place] [address] Care Team Providers Care Journeyman Plumber Name Role Phone Unavailable Primary Care Provider [...] for each transition of care or referral. [facility] Allergies Active Allergy Reactions Criticality Noted Date [...] Negative (Non Reactive) 02/17/2023 4:04 PM CDT [facility] Comment:HIV-1 p24 Antigen an d HIV-1/HIV-2 Antibody not detected Blood Venipuncture / Unknown 02/17/2023 9:06 AM CDT 02/17/2023 9:06 AM CDT Jimmie Martins PA-C LAB_1 [facility] [address] * Lipid Panel and Direct LDL(If Needed) (02/17/2023 9:06 AM CDT) Cholesterol 145 0 - 199 mg/dL 02/17/2023 12:34 PM CDT [facility] Triglyceride 80 <=149 mg/dL 02/17/2023 12:34 PM CDT [facility] HDL Cholesterol 47 >=40 mg/dL 12:34 PM CDT [facility] LDL, Calculated 82 <130 mg/dL 12:34 PM CDT [facility] Non HDL Chol, Calculated 98 <=159 mg/dL 02/17/2023 12:34 PM CDT [facility] Cholesterol/HDL Ratio 3.1 02/17/2023 12:34 PM CDT [facility] Hours Fasting 12.0 8 - 12 Hours 02/17/2023 12:34 PM CDT [facility] Blood Venipuncture / Unknown 02/17/2023 9:06 AM CDT 02/17/2023 9:06 AM CDT Jimmie Martins PA-C LAB_1 [facility] [address] [place] [address], [facility] [[email or web address]] [phone] [facility] [address] [place] [address], [facility] [[email or web address]] [phone] * Hepatitis C Antibody, with Reflex (02/17/2023 9:06 AM CDT) [facility] Hepatitis C Antibody Negative (Non Reactive) Negative (Non Reactive) 02/17/2023 4:04 PM CDT [facility] Comment:Antibodies to HCV no t detected. Does not exclude the possiblity of exposure to HCV. Blood Venipuncture / Unknown 02/17/2023 9:06 AM CDT 02/17/2023 9:06 AM CDT Jimmie Martins PA-C LAB_1 [facility] [address] [place], [place] [address] from Last 3 Months or Most Recently Relevant to Health Maintenance
[2024-08-06 20:35] LABS: PCR FLU A Negative PCR FLU A (Negative); PCR FLU B Negative PCR FLU B (Negative); PCR RSV POSITIVE PCR RSV (Negative); SARS PCR* Negative SARS-CoV-2 (Negative)
[2024-08-06 20:44] LABS: Basophils Absolute Auto 0.03 K/uL (0.00-0.30); Basophils Percent Auto 0.3 % (0.0-3.0); Eosinophils Absolute Auto 0.07 K/uL (0.00-0.50); Eosinophils Percent Auto 0.7 % (0.0-7.0); Hematocrit 43.7 % (37.0-53.0); Hemoglobin* 14.8 gm/dL (13.5-17.5); Immature Granulocytes Abs Auto 0.02 K/uL (0.00-0.30); Immature Granulocytes Pct Auto 0.2 %; Lymphocytes Percent Auto 13.3 % (20-44); Mean Corpuscular HGB Conc 34 gm/dL (32-36); Mean Corpuscular Hemoglobin 30 pg (26-34); Mean Corpuscular Volume 89 fL (80-100); Monocytes Percent Auto 11.8 % (0.0-11.0); Neutrophils Percent Auto 73.7 % (42.0-72.0); Platelet Count* 203 K/uL (140-440); RDW Coefficient of Variation % 11.8 % (11.5-15.5); Red Blood Count 4.89 m/uL (4.30-5.90); White Blood Count* 9.92 K/uL (4.50-11.00)
[2024-08-06 20:46] LABS: Slide Review Reflex No
[2024-08-06 20:59] LABS: Chloride* 103 mmol/L (96-114)
[2024-08-06 21:00] LABS: Potassium* 3.8 mmol/L (3.6-5.1); Sodium* 135 mmol/L (135-149)
[2024-08-06 21:02] VITALS: BP 112/75; PULSE 70; RESP 0; O2SAT 98
[2024-08-06 21:02] LABS: Creatinine* 0.7 mg/dL (0.5-1.5); Est. Creatinine Clearance* 164.73; Estimated Glomerular Filt Rate 120 ml/min
[2024-08-06 21:03] VITALS: PULSE 71; RESP 27; O2SAT 94
[2024-08-06 21:03] LABS: Anion Gap 8 mEq/L (7-15); Blood Urea Nitrogen* 9 mg/dL (5-24); Calcium* 9.2 mg/dL (8.4-10.6); Carbon Dioxide* 24 mmol/L (20-32); Glucose* 96 mg/dL (60-115)
[2024-08-06 21:07] LABS: D Dimer Quantitative* 0.21 ug/ml (0.00-0.50)
[2024-08-06 21:15] VITALS: PULSE 78; RESP 15; O2SAT 95
[2024-08-06 21:30] VITALS: PULSE 65; RESP 17; O2SAT 95
[2024-08-06 21:32] VITALS: BP 102/67; RESP 24
[2024-08-06] MEDS: predniSONE 10 MG TABLET 50 MG PO (21:36)
== END 2024-08-06 21:36 | disposition home or self-care (01) ==
PROVIDERS: Emergency Provider Family Medicine
DX: R07.89 Other chest pain (principal); B97.4 Respiratory syncytial virus as the cause of diseases classified elsewhere; R05.9 Cough, unspecified
CPT/HCPCS: 36415; 71046; 80048; 84484; 85025; 85379; 87631; 93005; 99284; J7512

== ENCOUNTER 2024-10-17 21:34 | Emergency (ER) | payer OTHER, SELFPAY ==
--- OUTSIDE RECORDS SUMMARY | 2024-10-17 21:36 | XMS_ITS | Clinical Summary ---
Author Organization [facility] Address [address] [place] [address] Care Team Providers Care Patch Sander Name Role Phone Unavailable Primary Care Provider [...] for each transition of care or referral. [facility] Allergies Active Allergy Reactions Criticality Noted Date Comments Penicillins Hives High 02/17/2023 Shellfish Allergy Anaphylaxis High 02/17/2023 Sulfa Antibiotics Hives High 02/17/2023 Medications No known medications Active Problems No known active problems Immunizations Immunization Administration Dates Next Due DTP 10/24/1986, 6,1985,1984 Flu Vac (3+ yrs) 04/02/2010,04/24/2008 HepB Adult (Engerix-B, 20+ y rs, 3 dose series) 07/18/1999,10/08/1998,11/27/1997 MMR 10/10/1997,07/06/1986 OPV, Trivalent (Orimune or tOPV) 997,10/24/1986,1985,1984 Pfizer Monovalent 12+ 09/18/2021 Pfizer Monovalent 12+ [...] Recorded Sex Assigned at Not on file Legal Sex Male 10:14 AM CDT Gender Identity Not on file Sexual Orientation [...] Maintenance Due Date Last Done Comments DTaP/Tdap/Td Vaccine (7 - Tdap) 10/31/2022 10/31/2012, 07/13/2002, 10/10/1997, Additional history exists COVID-19 Vaccine ( season) 2024 09/18/2021, 11/11/2020, 10/13/2020 Influenza Vaccine (#1) 2024 04/02/2010, 2007 Adult Preventive Visit 02/17/2025 02/17/2023 Cholesterol 02/18/2028 02/17/2023 Zoster/Shingles Vaccine (1 of 2) 2035 IPV (Polio) Vaccine Completed 11/15/1996, 10/24/1986, 1985, Additional history exists HepB Vaccine Completed 07/18/1999, 09/26, 11/27/1997 HIV Screening (Preventive Services) Completed 02/17/2023 Hep C Screening (Preventive Services) Completed 02/17/2023 HPV Vaccine Aged Out No longer eligi ble based on patient's age to complete this topic HepA Vaccine Aged Out No longer eligi ble based on patient's age to complete this topic Hib Vaccine Aged Out No longer eligi ble based on patient's age to complete this topic MCV4 Vaccine Aged Out No longer eligi ble based on patient's age to complete this topic Meningococcal B Vaccine Aged Out No l onger eligible based on patient's age to complete this topic Pneumococcal Vaccine Aged Out No long er eligible based on patient's age to complete this [...] 9:06 AM CDT Jimmie Martins PA-C LAB_1 Final Result [facility] [address] [place] [address], [facility] * Lipid Panel and Direct LDL(If Needed) (02/17/2023 9:06 AM CDT) Cholesterol 145 0 - 199 mg/dL 02/17/2023 12:34 PM CDT [facility] Triglyceride 80 <=149 mg/dL 02/17/2023 12:34 PM CDT [facility] HDL Cholesterol 47 >=40 mg/dL 12:34 PM CDT [facility] LDL, Calculated 82 <130 mg/dL 12:34 PM CDT [facility] Non HDL Chol, Calculated 98 <=159 mg/dL 02/17/2023 12:34 PM CDT [facility] Cholesterol/HDL Ratio 3.1 02/17/2023 12:34 PM CDT [facility] Hours Fasting 12.0 8 - 12 Hours 02/17/2023 12:34 PM CDT [facility] Blood Venipuncture / Unknown 02/17/2023 9:06 AM CDT 02/17/2023 9:06 AM CDT Jimmie Martins PA-C LAB_1 Final Result [facility] [address] [place] [address], [facility] [phone] [facility] [address] [place] [address], [facility] [phone] * Hepatitis C Antibody, with Reflex (02/17/2023 9:06 AM CDT) Pathologist [facility] Hepatitis C Antibody Negative (Non Reactive) Negative (Non Reactive) 02/17/2023 4:04 PM CDT [facility] Comment:Antibodies to HCV no t detected. Does not exclude the possiblity of exposure to HCV. Blood Venipuncture / Unknown 02/17/2023 9:06 AM CDT 02/17/2023 9:06 AM CDT Jimmie Martins PA-C LAB_1 Final Result [facility] [address] [place] [address], [facility] from Last 3 Months or Most Recently Relevant to Health Maintenance Insurance [facility]
[2024-10-17 21:38] VITALS: BP 153/108; PULSE 59; RESP 16; TEMP 37; O2SAT 97; BMI 32.1
--- NOTE | 2024-10-17 21:43 | CRLHL7_ITS ---
For Patients: As a result of the Cures Act, medical imaging exams and procedure reports are released immediately into your electronic medical record. You may view this report before your referring provider. If you have questions, please contact your health care provider. Indication: Right 2nd finger trauma. Technique: Three views of the right 2nd finger. Comparison: None. Findings/impression: Bones: No acute fracture or dislocation. Joint spaces: Unremarkable. Soft tissues: Unremarkable. Dictated by Osiel Nichole MD @ 10/17/2024 11:28:55 PM (Electronically Signed)
--- NOTE | 2024-10-17 23:15 | ED_ITS ---
HPI - General Adult General Date Seen: 10/17/24 Chief complaint: Extremity Pain/Injury, Upper Stated complaint: Right index finger caught in belt Time Seen by Provider: 10/17/24 22:18 History of Present Illness HPI narrative: 39-year-old male presenting to the ER today with his family for evaluation of injury and pain affecting his right hand index finger. He is right-hand dominant. He was working on his car tonight when he accidentally got his finger tip pinched between a belt in the car engine and the nghia that spans the belt. Injury occurred at about 4:00 pm. this evening but he finished working on the car and then came to the ER tonight. He describes that he got the tip of his finger pinched in the triangular part between the belt in the nghia. He did really get the entire length of his finger twisted by the belt or pinched. Just the distal finger tip and fingernail. He notes that initially his finger was little bit painful but he has noted gradually progressively increasing pain and throbbing and evolving purplish discoloration of that finger nail. Related Data Home Medications ?Medication ?Instructions ?Recorded ?Confirmed Midol 08/06/24 Previous Rx's ?Medication ?Instructions ?Recorded ondansetron 4 mg disintegrating 4 mg PO Q8H PRN nausea and 12/29/22 tablet vomiting #10 tabs Allergies Allergy/AdvReac Type Severity Reaction Status Date / Time Penicillins Allergy Verified 08/06/24 19:42 shellfish derived Allergy Verified 08/06/24 19:42 Sulfa (Sulfonamide Allergy Verified 08/06/24 19:42 Antibiotics) [facility] Medical History No significant past medical history Surgical History No significant past surgical history Social History Smoking Status: Former smoker Do you use any of these nicotine containing products: Vaping Products Second hand tobacco smoke exposure: No How often do you have a drink containing alcohol: never How often do you have six or more drinks on one occasion: Never AUDIT-C Alcohol total score: 0 service: No Exam Narrative: Exam Narrative: Constitutional: Appears well-developed and well-nourished. Active. Non-toxic appearing. HENT: Head: Atraumatic. No signs of injury. Nose: No nasal discharge. Mouth/Throat: Mucous membranes are moist. Pharynx is normal. Tonsils symmetric. Uvula midline. Airway patent. Eyes: Conjunctivae normal and EOM are normal. Pupils are equal, round, and reactive to light. Right eye exhibits no discharge. Left eye exhibits no discharge. No icterus. Neck: Normal range of motion. Neck supple. No adenopathy. No stridor. Cardiovascular: Normal rate and regular rhythm. No murmur heard. No murmurs, rubs, or gallops. Brisk capillary refill in his finger tip. There is a roughly 30% subungual hematoma but no other active external bleeding. Pulmonary/Chest: Effort normal. No stridor. No respiratory distress. Musculoskeletal: Uninjured except for his right hand index finger. Inspection the right index finger reveals a roughly 30% subungual hematoma affecting the proximal portion of the fingernail bed. Fingernail plate is intact. No laceration. No bleeding from the nail matrix or underneath the nail bed. No lacerations of the distal finger. He has intact flexion and extension of the D IP, PIP, MCP. Intact radial and ulnar digital nerve sensory function. Normal cap refill distally in the finger. He has a healing scab on the skin on the dorsal/ulnar side of the PIP joint which apparently reflects a recent injury to that joint and is not an injury from tonight.. Neurological: Alert. Normal strength. No cranial nerve deficit or sensory deficit. Coordination normal. GCS eye subscore is 4. GCS verbal subscore is 5. GCS motor subscore is 6. Skin: Skin is warm. No rash noted. Const: Vital Signs, click to edit/add: Vital Signs - 24 hr 10/17/24 21:38 10/17/24 23:50 Temperature 98.6 F 98.6 F Pulse Rate [Right Radial] 59 L 59 L Respiratory Rate 16 16 Blood Pressure [Ri ght Upper Arm] 153/108 H 153/108 H Pulse Oximetry 97 Oxygen Delivery Me thod Room Air Course Course ED Course: Patient seen and evaluated in the ER triage because the ER was very busy this evening. X-rays were obtained by nursing triage in are fortunately negative for any acute fracture or dislocation And my exam he does have evidence for a finger tip pinching injury. Fortunately no sign of any degloving or laceration from being crushed in the belt. He does have evidence for a subungual hematoma. After verbal consent we did drain the subungual hematoma. Procedure: Drainage of subungual hematoma. Sterile prep with alcohol swab. Using an 18 gauge needle I gradually created a small hole through the fingernail plate in the area of the hematoma and achieved drainage of dark red liquid blood. With this the patient noted substantial improvement in the throbbing pain and aching in his finger tip. Vital Signs Vital signs: Initial Vital Signs Temperature 98.6 F 10/17/24 21:38 Temperature Source Temporal Artery Scan 10/17/24 21:38 Pulse Rate 59 L 10/17/24 21:38 Pulse Rhythm Regular 10/17/24 21:38 Respiratory Rate 16 10/17/24 21:38 Blood Pressure 153/108 H 10/17/24 21:38 Blood Pressure Mean 123 H 10/17/24 21:38 Pulse Oximetry 97 10/17/24 21:38 Oxygen Delivery Method Room Air 10/17/24 21:38 Vital Signs Temperature 98.6 F 10/17/24 21:38 Pulse Rate 59 L 10/17/24 21:38 Respiratory Rate 16 10/17/24 21:38 Blood Pressure 153/108 H 10/17/24 21:38 Pulse Oximetry 97 10/17/24 21:38 Oxygen Delivery Method Room Air 10/17/24 21:38 Temperature 98.6 F 10/17/24 23:50 Pulse Rate 59 L 10/17/24 23:50 Respiratory Rate 16 10/17/24 23:50 Blood Pressure 153/108 H 10/17/24 23:50 Pulse Oximetry 97 10/17/24 21:38 Oxygen Delivery Method Room Air 10/17/24 21:38 Medical Decision Making MDM Narrative Medical decision making narrative: Pleasant 39-year-old male presenting to the ER today with a crushing injury to his right hand index finger after he got it caught between a belt and nghia in his car this evening. Fortunately x-rays and clinical exam are negative for any acute fracture. No evidence for any finger dislocation no associated lacerations or signs of a degloving injury. He does have evidence for a subungual hematoma. I trephinated the nail using an 18 gauge needle here in the ER with drainage of blood and subsequent improvement in his pain. At this point he is feeling better and comfortable with plan for discharge to home. Discussed the need for wound care, precautions for return to the ER need for follow-up. Questions answered to the best my ability. Patient is here discharged home with his family. Imaging Data XR finger: Attestation: I have reviewed the pertinent imaging results. My impression: No acute fracture. Radiologist's impression: Findings/impression: Bones: No acute fracture or dislocation. Joint spaces: Unremarkable. Soft tissues: Unremarkable. Discharge Plan Discharge Clinical Impression: Subungual hematoma Patient Disposition: Home, Self-Care Condition: Stable Instructions: Subungual Hematoma (ED) Additional Instructions: As we discussed, please try to keep your injured finger clean and dry. It is okay to wash her finger in the shower and get it wet but avoid submerging in water. Keep a dressing in place over your fingernail for the next week. If you have any concerns such as reaccumulation of blood underneath her fingernail, new numbness or weakness in your finger, trouble moving her knuckle joints, or any other problems, please come back to the ER or see the [facility]. To make an appointment with the [facility] you can call [phone]. Prescriptions: No Action ondansetron 4 mg tablet,disintegrating 4 mg PO Q8H PRN (Reason: nausea and vomiting) Qty: 10 0RF Midol Follow Up/Referrals: Provider,Not a Local [Primary Care Provider] - Stand Alone Forms: [employer] Info Instructions
[2024-10-17 23:50] VITALS: BP 153/108; PULSE 59; RESP 16; TEMP 37
--- OUTSIDE RECORDS SUMMARY | 2024-10-17 23:52 | XMS_ITS | Clinical Summary ---
Author Organization [facility] Address [address] [place] [address] Care Team Providers Care Saddle And Harness Maker Name Role Phone Unavailable Primary Care Provider [...] for each transition of care or referral. [facility] Allergies Active Allergy Reactions Criticality Noted Date [...] Negative (Non Reactive) 02/17/2023 4:04 PM CDT [facility] Comment:HIV-1 p24 Antigen an d HIV-1/HIV-2 Antibody not detected Blood Venipuncture / Unknown 02/17/2023 9:06 AM CDT 02/17/2023 9:06 AM CDT Jimmie Martins PA-C LAB_1 Final Result [facility] [address] [place] [address], [facility] * Lipid Panel and Direct LDL(If Needed) (02/17/2023 9:06 AM CDT) Cholesterol 145 0 - 199 mg/dL 02/17/2023 12:34 PM CDT [facility] Triglyceride 80 <=149 mg/dL 02/17/2023 12:34 PM CDT [facility] HDL Cholesterol 47 >=40 mg/dL 12:34 PM CDT [facility] LDL, Calculated 82 <130 mg/dL 12:34 PM CDT [facility] Non HDL Chol, Calculated 98 <=159 mg/dL 02/17/2023 12:34 PM CDT [facility] Cholesterol/HDL Ratio 3.1 02/17/2023 12:34 PM CDT [facility] Hours Fasting 12.0 8 - 12 Hours 02/17/2023 12:34 PM CDT [facility] Blood Venipuncture / Unknown 02/17/2023 9:06 AM CDT 02/17/2023 9:06 AM CDT Jimmie Martins PA-C LAB_1 Final Result [facility] [address] [place] [address], [facility] [phone] [facility] [address] [place] [address], [facility] [phone] * Hepatitis C Antibody, with Reflex (02/17/2023 9:06 AM CDT) Pathologist [facility] Hepatitis C Antibody Negative (Non Reactive) Negative (Non Reactive) 02/17/2023 4:04 PM CDT [facility] Comment:Antibodies to HCV no t detected. Does not exclude the possiblity of exposure to HCV. Blood Venipuncture / Unknown 02/17/2023 9:06 AM CDT 02/17/2023 9:06 AM CDT Jimmie Martins PA-C LAB_1 Final Result [facility] [address] [place] [address], [facility] from Last 3 Months or Most Recently Relevant to Health Maintenance Insurance [facility]
== END 2024-10-17 23:57 | disposition home or self-care (01) ==
LOC: ED 23:50
PROVIDERS: Emergency Provider Emergency Medicine
DX: S60.121A Contusion of right index finger with damage to nail, initial encounter (principal); W23.0XXA Caught, crushed, jammed, or pinched between moving objects, initial encounter
CPT/HCPCS: 11740; 73140; 99282; 99283

== ENCOUNTER 2025-01-11 07:14 | Emergency (ER) | payer OTHER, SELFPAY ==
[2025-01-11] VITALS (17 sets, daily range): BP systolic 99–122; BP diastolic 70–78; PULSE 48–77; RESP 16–20; TEMP 36.6; O2SAT 96–99; BMI 28.2
--- OUTSIDE RECORDS SUMMARY | 2025-01-11 07:16 | XMS_ITS | Clinical Summary ---
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 [facility] Allergies Active Allergy Reactions Criticality Noted [...] Vaccine ( season) 2024 09/18/2021, 11/11/2020, 10/13/2020 Adult Preventive Visit 02/17/2025 02/17/2023 Influenza Vaccine (#1) 2025 04/02/2010, 2007 Cholesterol 02/18/2028 02/17/2023 Zoster/Shingles Vaccine (1 of [...] immunodeficiency virus) HEPATITIS C ANTIBODY, WITH REFLEX (ANTI-HCV) Routine 02/17/2023 9:06 AM CDT Need for [...] Negative (Non Reactive) 02/17/2023 4:04 PM CDT [facility] Comment:HIV-1 p24 Antigen an d HIV-1/HIV-2 Antibody not detected Blood Venipuncture / Unknown 02/17/2023 9:06 AM CDT 02/17/2023 9:06 AM CDT Jimmie Martins PA-C LAB_1 Final Result [facility] [address] [place] [address], [facility] * Lipid Panel and Direct LDL(If Needed) (02/17/2023 9:06 AM CDT) Cholesterol 145 0 - 199 mg/dL 02/17/2023 12:34 PM CDT [facility] Triglyceride 80 <=149 mg/dL 02/17/2023 12:34 PM CDT [facility] HDL Cholesterol 47 >=40 mg/dL 12:34 PM CDT [facility] LDL, Calculated 82 <130 mg/dL 12:34 PM CDT [facility] Non HDL Chol, Calculated 98 <=159 mg/dL 02/17/2023 12:34 PM CDT [facility] Cholesterol/HDL Ratio 3.1 02/17/2023 12:34 PM CDT [facility] Hours Fasting 12.0 8 - 12 Hours 02/17/2023 12:34 PM CDT [facility] Blood Venipuncture / Unknown 02/17/2023 9:06 AM CDT 02/17/2023 9:06 AM CDT Jimmie Martins PA-C LAB_1 Final Result [facility] [address] [place] [address], [facility] [phone] [facility] [address] [place] [address], [facility] [phone] * Hepatitis C Antibody, with Reflex (02/17/2023 9:06 AM CDT) Pathologist [facility] Hepatitis C Antibody Negative (Non Reactive) Negative (Non Reactive) 02/17/2023 4:04 PM CDT [facility] Comment:Antibodies to HCV no t detected. Does not exclude the possiblity of exposure to HCV. Blood Venipuncture / Unknown 02/17/2023 9:06 AM CDT 02/17/2023 9:06 AM CDT Jimmie Martins PA-C LAB_1 Final Result [facility] [address] [place], [place] [address] from Last 3 Months or Most Recently Relevant to Health Maintenance Insurance [facility]
--- NOTE | 2025-01-11 08:08 | ED.GENADULT ---
HPI - General Adult General Chief complaint: Back Injury/Pain Stated complaint: back pain after fall this morning Time Seen by Provider: 01/11/25 08:08 History of Present Illness HPI narrative: pt had cramp in legs last night, woke up and stood up and started walking, passed out in bathroom, got up and passed out again. was diaphoretic. now having R low back pain. also hit L brow bone on bed. 39-year-old man presenting to the emergency department following apparent syncopal event and pain. Pain is in the right low or flank area. Apparently woke last night with sensation leg cramps. With standing at the side of the bed trying to work this out. Evidently then made it to the bathroom where spouse heard a crash. He does not have good recollection though made it back to the bed where apparently collapsed again before getting into bed. Spouse checked him out that time and then noting him to have struck his left brow she thinks maybe on the bed. Noted that his pupils were equal at that time but he was rather diaphoretic. Denies chest pain or shortness of breath throughout this episode. Is not known to pass out with pain. 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 No recent specific injury. Did not have abdominal pain other than some right back or flank area discomfort it has continued and to the point that would appreciate some pain medication. Has not noted any hematuria. No personal or family history of kidney stones. Related Data Home Medications ?Medication ?Instructions ?Recorded ?Confirmed No Known Home Medications 01/11/25 01/11/25 Allergies Allergy/AdvReac Type Severity Reaction Status Date / Time Penicillins Allergy Verified 08/06/24 19:42 shellfish derived Allergy Verified 08/06/24 19:42 Sulfa (Sulfonamide Allergy Verified 08/06/24 19:42 Antibiotics) Review of Systems Status of ROS: Reports: 6 or more systems reviewed and unremarkable except as noted in History and below [facility] Medical History No significant past medical history Surgical History No significant past surgical history Social History Smoking Status: Former smoker Do you use any of these nicotine containing products: Vaping Products Second hand tobacco smoke exposure: No How often do you have a drink containing alcohol: never How often do you have six or more drinks on one occasion: Never AUDIT-C Alcohol total score: 0 Non-prescribed substance use: marijuana (any form) service: No Exam Narrative: Exam Narrative: Pleasant. NAD. Heavily tattooed arms. Skin is warm and dry. Well-perfused. Hands/nails are stain consistent with under mode of work. No extremity edema. Cranial nerves 2-12 are intact. Pupils are 3 mm equal and appropriately reactive. Extraocular movements are full. There is subtle swelling at the left brow with 3/16th of an inch subtle linear superficial cut. Head otherwise atraumatic. Neck is supple nontender. Back nontender. Seems to have some reproducible discomfort to percussion in the right flank but not to palpation of the back otherwise. Abdomen is soft nontender. Moving all extremities fluidly ankle without difficulty with good strength. Const: Vital Signs, click to edit/add: Vital Signs - 24 hr 01/11/25 07:17 01/11/25 09:00 01/11/25 09:23 Temperature 97.8 F Pulse Rate 52 L Pulse Rate [Pulse Oximeter] 68 48 L Pulse Rate [orthos tatic sitting] 55 L Pulse Rate [orthos tatic standing] 58 L Respiratory Rate 16 Blood Pressure 115/72 Blood Pressure [Ri ght Upper Arm] 122/72 Blood Pressure [or thostatic lying] 112/78 Blood Pressure [or thostatic sitting] 110/78 Blood Pressure [or thostatic standing ] 104/77 Pulse Oximetry 97 97 Oxygen Delivery Me thod Room Air Documenting provider has reviewed patient's vital signs: yes Course Vital Signs Vital signs: Initial Vital Signs Temperature 97.8 F 01/11/25 07:17 Temperature Source Temporal Artery Scan 01/11/25 07:17 Pulse Rate 68 01/11/25 07:17 Respiratory Rate 16 01/11/25 07:17 Blood Pressure 122/72 01/11/25 07:17 Blood Pressure Mean 88 01/11/25 07:17 Pulse Oximetry 97 01/11/25 07:17 Oxygen Delivery Method Room Air 01/11/25 07:17 Vital Signs Temperature 97.8 F 01/11/25 07:17 Pulse Rate 68 01/11/25 07:17 Respiratory Rate 16 01/11/25 07:17 Blood Pressure 122/72 01/11/25 07:17 Pulse Oximetry 97 01/11/25 07:17 Oxygen Delivery Method Room Air 01/11/25 07:17 Temperature 97.8 F 01/11/25 07:17 Pulse Rate 72 01/11/25 10:32 Respiratory Rate 20 01/11/25 09:21 Blood Pressure 99/70 01/11/25 10:32 Pulse Oximetry 99 01/11/25 10:32 Oxygen Delivery Method Room Air 01/11/25 07:17 Medications Administered Medications: Discontinued Medications Generic Name Dose Route Start Last Admin Trade Name Gil PRN Reason Stop Dose Admin Ketorolac Tromethamine 30 mg 01/11/25 08:34 01/11/25 08:52 Ketorolac 30 Mg/Ml Inj IVP 01/11/25 08:35 30 mg ONCE ONE Administration Medical Decision Making MDM Narrative Medical decision making narrative: Appears fatigued. 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 No micturition response history. Would monitor for evidence of cardiac arrhythmia and more significant head injury. I do not think that at this time will require head imaging without more prodromal symptoms more significant injury. Could have ureteral stone and vasovagal pain response. Clinical symptoms do not otherwise though seem quite consistent with that; I think more of a musculoskeletal issue is present here. In later conversation does recall irritating his back, tweaking it, at work last week but he does not recall it really hurting prior to this event today. Given ketorolac for pain in the emergency department. Labs are reassuring. No event on environmental monitoring specialist during time monitoring. Overall feels improved. See patient discharge plan for further discussion Focus on hydration especially today. See handout on stretches for your low back that might be helpful. Helpful to do these chronically/long-term I think especially given your occupation. Am prescribing some Flexeril a ?muscle relaxer? from [facility]. Keep in mind that this can be sedating which is frankly primarily how they help relax muscles. Also a small quantity of [place], an opiate. Each tablet contains 325mg of acetaminophen. Take care in transitions. Like waiting a moment at the edge of the bed before you stand up. Can take up to 800 mg of ibuprofen up to 1000 mg of acetaminophen per dose. Alternative to the ibuprofen might be up to 500 mg of naproxen 2 times daily. Would schedule follow-up in primary care 1st to establish care but also for persistent symptoms. Return for repeat syncopal event, noon focal weakness, severe headache, discoordination, chest pain, shortness of breath. Medical Records Medical records reviewed: Yes I reviewed the patient's medical records Lab Data Lab results reviewed: Yes I reviewed the patient's lab results Labs: Lab Results 01/11/25 01/11/25 01/11/25 Range/Units 08:27 08:52 09:15 WBC 5.64 (4.50-11.00) K/uL RBC 4.56 (4.30-5.90) m/uL Hgb 13.7 (13.5-17.5) gm/dL Hct 40.9 (37.0-53.0) % MCV 90 (80-100) fL MCH 30 (26-34) pg MCHC 34 (32-36) gm/dL RDW Coeff of Duran 12.2 (11.5-15.5) % Plt Count 199 (140-440) K/uL Neut % (Auto) 66.5 (42.0-72.0) % Lymph % (Auto) 22.0 (20-44) % Freestone % (Auto) 10.3 (0.0-11.0) % Eos % (Auto) 0.5 (0.0-7.0) % Baso % (Auto) 0.5 (0.0-3.0) % Neut # (Auto) 3.75 (1.7-7.0) K/uL Lymph # (Auto) 1.24 (0.90-2.90) K/uL [place] # (Auto) 0.60 (0.00-0.90) K/UL Eos # (Auto) 0.03 (0.00-0.50) K/uL Baso # (Auto) 0.03 (0.00-0.30) K/uL Abs Immat Gran (auto) 0.01 (0.00-0.30) K/uL Imm/Tot Granulo (auto) 0.2 % D-Dimer Quant (PE/DVT) < 0.27 (0.00-0.50) ug/ml Sodium 139 (135-149) mmol/L Potassium 3.9 (3.6-5.1) mmol/L Chloride 106 (96-114) mmol/L Carbon Dioxide 27 (20-32) mmol/L Anion Gap 6 L (7-15) mEq/L BUN 6 (5-24) mg/dL Creatinine 0.7 (0.5-1.5) mg/dL Estimated Creat Clear 164.73 Estimated GFR 120 ml/min Glucose 115 (60-115) mg/dL Calcium 8.9 (8.4-10.6) mg/dL Total Bilirubin 0.8 (0.1-1.5) mg/dL Direct Bilirubin 0.0 (0.0-0.5) mg/dL AST 33 (12-35) U/L ALT 19 (4-50) U/L Alkaline Phosphatase 58 (40-150) U/L Troponin I < 0.01 (0.01-0.04) ng/mL NT-Pro-B Natriuret Pep 21 (See Note) pg/mL Total Protein 6.3 (6.0-8.3) g/dL Albumin 4.0 (3.3-5.0) g/dL Urine Color Yellow (Yellow) Urine Appearance Clear (Clear) Urine pH 7.5 (5.0-8.5) Ur Specific [place] 1.015 (1.000-1.030) Urine Protein Negative (Negative) Urine Glucose (UA) Negative (Negative) Urine Ketones Negative (Negative) Urine Blood Negative (Negative) Urine Nitrite Negative (Negative) Urine Bilirubin Negative (Negative) Urine Urobilinogen 0.2 (0.2-1.0) Ur Leukocyte Esterase Negative (Negative) Urine RBC 0-2 (0-2) Urine WBC 0-2 (0-5) Ur Squamous Epith Cells Few (None-Few) Urine Bacteria None (None) Lab Acknowledgement Test Added ECG Data Attestation: I personally reviewed and interpreted this ECG as follows: (Sinus bradycardia at rate of 55. No acute ischemic changes appreciated.) Discharge Plan Discharge Clinical Impression: Syncope, Closed head injury, Low back strain Patient Disposition: Home w/ Parent or Adult Condition: Improved Instructions: Syncope (ED) Additional Instructions: Focus on hydration especially today. See handout on stretches for your low back that might be helpful. Helpful to do these chronically/long-term I think especially given your occupation. Am prescribing some Flexeril a ?muscle relaxer? from [facility]. Keep in mind that this can be sedating which is frankly primarily how they help relax muscles. Also a small quantity of [place], an opiate. Each tablet contains 325mg of acetaminophen. Take care in transitions. Like waiting a moment at the edge of the bed before you stand up. Can take up to 800 mg of ibuprofen up to 1000 mg of acetaminophen per dose. Alternative to the ibuprofen might be up to 500 mg of naproxen 2 times daily. Would schedule follow-up in primary care 1st to establish care but also for persistent symptoms. Return for repeat syncopal event, noon focal weakness, severe headache, discoordination, chest pain, shortness of breath. Prescriptions: No Action No Known Home Medications Follow Up/Referrals: Provider,Not a Local [Primary Care Provider, Family Practice] Stand Alone Forms: [employer] Info Instructions
[2025-01-11 08:48] LABS: Appearance Urine Clear (Clear)
[2025-01-11 09:02] LABS: Hematocrit* 40.9 % (37.0-53.0); Hemoglobin* 13.7 gm/dL (13.5-17.5); Immature Granulocytes Abs Auto 0.01 K/uL (0.00-0.30); Immature Granulocytes Pct Auto 0.2 %; Lymphocytes Absolute Auto 1.24 K/uL (0.90-2.90); Mean Corpuscular HGB Conc 34 gm/dL (32-36); Mean Corpuscular Hemoglobin 30 pg (26-34); Mean Corpuscular Volume 90 fL (80-100); RDW Coefficient of Variation % 12.2 % (11.5-15.5); Red Blood Count* 4.56 m/uL (4.30-5.90); White Blood Count* 5.64 K/uL (4.50-11.00)
[2025-01-11 09:04] LABS: Slide Review Reflex No
[2025-01-11 09:15] LABS: Albumin* 4.0 g/dL (3.3-5.0); Chloride* 106 mmol/L (96-114); Sodium* 139 mmol/L (135-149)
[2025-01-11 09:16] LABS: Potassium* 3.9 mmol/L (3.6-5.1)
[2025-01-11 09:18] LABS: Alanine Aminotransferase* 19 U/L (4-50); Alkaline Phosphatase* 58 U/L (40-150); Anion Gap 6 mEq/L (7-15); Aspartate Amino Transferase* 33 U/L (12-35); Bilirubin Direct* 0.0 mg/dL (0.0-0.5); Bilirubin Total* 0.8 mg/dL (0.1-1.5); Blood Urea Nitrogen* 6 mg/dL (5-24); Carbon Dioxide* 27 mmol/L (20-32); Creatinine* 0.7 mg/dL (0.5-1.5); Est. Creatinine Clearance* 164.73; Estimated Glomerular Filt Rate 120 ml/min; Total Protein* 6.3 g/dL (6.0-8.3)
[2025-01-11 09:19] LABS: Calcium* 8.9 mg/dL (8.4-10.6); Glucose* 115 mg/dL (60-115)
[2025-01-11 09:31] LABS: NT Pro B Type NatriureticPept* 21 pg/mL (See Note)
[2025-01-11 10:06] LABS: D Dimer Quantitative* < 0.27 ug/ml (0.00-0.50)
== END 2025-01-11 10:58 | disposition home or self-care (01) ==
PROVIDERS: Emergency Provider Family Medicine
DX: R55 Syncope and collapse (principal); S39.012A Strain of muscle, fascia and tendon of lower back, initial encounter
CPT/HCPCS: 36415; 80048; 80076; 81001; 83880; 84484; 85025; 85379; 93005; 96374; 99284; J1885

== ENCOUNTER 2025-06-10 10:16 | Emergency (ER) | payer OTHER, SELFPAY ==
[2025-06-10] VITALS (17 sets, daily range): BP systolic 117–136; BP diastolic 68–97; PULSE 85–101; RESP 5–25; TEMP 37.8; O2SAT 94–100
--- OUTSIDE RECORDS SUMMARY | 2025-06-10 10:18 | XMS_ITS | Clinical Summary ---
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 [facility] Allergies Active AllergyReactionsCriticalityNoted DateCommentsPenicillinsHivesHigh 02/17/2023Shellfish RlfhlwwHajzqpiltduJqdd27/23/2023Sulfa AntibioticsHivesHigh 02/17/2023 Medications MedicationSigDispense QuantityRefillsLast FilledStart DateEnd DateStatus ondansetron (ZOFRAN-ODT) 4 MG disintegrating tablet Take 1 Tablet (4 mg) by mouth every 8 hours as needed for Nausea. 10 Tablet 5Active Active Problems No known active problems Encounters DateTypeDepartmentCare CzmwAjvjrdfhsdg88/23/2025 9:00 AM CDTOffice Visit [facility] [address] [place] [address] Shanti Livingston PA-C Moe, James T, MD Upper respiratory tract infection, unspecified typefrom Last 3 Months Immunizations ImmunizationAdministration DatesNext SqyKLB4710/24/1986,1985,1985, 1985Flu Vac (3+ yrs)04/02/2010,04/24/2008HepB Adult (Engerix-B, 20+ yrs, 3 dose series)07/18/1999,10/08/1998,11/27/1997MMR10/10/1997,07/06/1986OPV, Trivalent (Orimune or tOPV)11/15/1996,10/24/1986,1985,1985Pfizer Monovalent 12+09/18/2021fizer Monovalent 12+ Purple Top11/11/2020,10/13/2020Td (7+ yrs)07/13/2002,10/10/1997Tdap10/31/2012 Social History Tobacco UseTypesPacks/DayYears UsedDateSmoking Tobacco: GjddgcFydhbxusxi0262521 - 2020 Tobacco Cessation:Counseling Given: Not Answered Alcohol UseStandard Drinks/WeekCommentsNot Currently0 (1 standard drink = 0.6 oz pure alcohol)PHQ-2AnswerDate RecordedPHQ-2 Nqcsk775Financial Resource StrainAnswerDate RecordedIs it hard for you to pay for the very basics like food, housing, medical care or heating?No02/17/2023Food InsecurityAnswerDate RecordedDoes your food run out before you have the money to buy more?No 02/17/2023Transportation NeedsAnswerDate RecordedDoes a lack of transportation keep you from your medical appointments or from getting your medications?No 02/17/2023Sex and Gender InformationValueDate RecordedSex Assigned at BirthNot on fileLegal ZatCyno8801/22/2023 10:14 AM CDTGender IdentityNot on fileSexual OrientationNot on file Last Filed Vital Signs Vital SignReadingTime TakenCommentsBlood Mzkllnay046/7303/20/2025 8:49 AM CDT Yqvdo923403/20/2025 8:49 AM EVIBcildcbalca82.4 ??C (97.5 ??F)03/20/2025 8:49 AM CDTRespiratory Fvbs097603/20/2025 8:49 AM CDTOxygen Kpkaxqzdwy30%03/20/2025 8:49 AM CDTInhaled Oxygen Concentration--Xlswfb755.2 kg (236 lb 4.8 oz)02/17/2023 8:12 AM PQSIcuenu298 cm (6' 0.44)02/17/2023 8:12 AM CDTBody Mass Index31.66 02/17/2023 8:12 AM CDT Plan of Treatment Health MaintenanceDue DateLast DoneCommentsAdult Preventive Visit02/17/2025 02/17/2023OVID-19 Vaccine ( season)/, 11/11/2020, 10/13/2020Influenza Vaccine (#1)/11/2009, 04/24/2008Cholesterol /TaP/Tdap/Td Vaccine (8 - Tdap)/07/2023, 10/31/2012, 07/13/2002, Additional history existsZoster/Shingles Vaccine (1 of 2)2035IPV (Polio) LzddixyAmglmkhgr28/21/1997, 10/24/1986, 1985, Additional history existsHepB NjhnibnLvbyjxtew17/21/2000, 10/08/1998, 11/27/1997 HIV Screening (Preventive Services)Qharlejhp91/23/2023Hep C Screening (Preventive Services)Svkyhmszs14/23/2023HPV Vaccine (No Doses Required)Completed HepA VaccineAged OutNo longer eligible based on patient's age to complete this topicHib VaccineAged OutNo longer eligible based on patient's age to complete this topicMCV4 VaccineAged OutNo longer eligible based on patient's age to complete this topicMeningococcal B VaccineAged OutNo longer eligible based on patient's age to complete this topicPneumococcal VaccineAged OutNo longer eligible based on patient's age to complete this topic Procedures Procedure NamePriorityDate/TimeAssociated DiagnosisCommentsSTREP GROUP A, MOLECULAR ZFCHQLJGRXfnevst97/23/2025 8:46 AM CDT Upper respiratory tract infection, unspecified type HIV 1/2 AG/AB 4TH NBUOvuompj90/23/2023 9:06 AM CDT Screening for HIV (human immunodeficiency virus) HEPATITIS C ANTIBODY, WITH REFLEX (ANTI-HCV)Qnarfar2102/17/2023 9:06 AM CDT Need for hepatitis C screening test LIPID PANEL & DIRECT LDL (IF NEEDED)Zjxmswe3202/17/2023 9:06 AM CDT Well adult exam from Last 3 Months or Most Recently Relevant to Health Maintenance Results * STREP GROUP A, Molecular Detection-Collect Now in current encounter (03/20/2025 8:46 AM CDT)ComponentValueRef RangeTest MethodAnalysis Time Performed AtPathologist SignatureGroup A StrepNot DetectedNot Detected 03/20/2025 10:08 AM [facility]:Methodology: Qualitative real-time PCR assaySpecimen (Source)Anatomical Location / LateralityCollection Method / VolumeCollection TimeReceived TimeSwab (Source Required)THROAT SWAB / UnknownNon-blood Collection / Mcbtdaq2703/20/2025 8:46 AM CDT03/20/2025 8:58 AM CDT Narrative Authorizing ProviderResult TypeResult StatusGana Mclain MBBSLAB_1Final Result Performing OrganizationAddressCity/State/ZIP CodePhone Number [facility] CLIA: [id number] [address] [place] [address] * HIV 1/2 Ag/Ab 4th Generation (02/17/2023 9:06 AM CDT)ComponentValueRef Range Test MethodAnalysis TimePerformed AtPathologist SignatureHIV 1/2 Antigen/Antibody (4th generation)Negative (Non Reactive)Negative (Non Reactive)02/17/2023 4:04 PM CDTMETHODIST LABORATORYComment:HIV-1 p24 Antigen and HIV-1/HIV-2 Antibody not detectedSpecimen (Source)Anatomical Location / LateralityCollection Method / VolumeCollection TimeReceived TimeBlood Venipuncture / Uthpsed8002/17/2023 9:06 AM CDT02/17/2023 9:06 AM CDT Narrative Authorizing ProviderResult TypeResult StatusJimmie Martins PA-CLAB_1Final Result Performing OrganizationAddressCity/State/ZIP CodePhone Number [facility] [address] [place], [place] [address] * Lipid Panel and Direct LDL(If Needed) (02/17/2023 9:06 AM CDT)ComponentValue Ref RangeTest MethodAnalysis TimePerformed AtPathologist SignatureCholesterol 1450 - 199 mg/dL02/17/2023 12:34 PM [facility] WVTOBHPIUCGhpixbbaxwyp36 <=149 mg/dL02/17/2023 12:34 PM [facility] LABORATORYHDL Awfrzrzfpum23>=40 mg/dL02/17/2023 12:34 PM [facility] LABORATORYLDL, Pshcxycjfo01<130 mg/dL 02/17/2023 12:34 PM [facility] LABORATORYNon HDL Chol, Bhdsqkqtyi99<=159 mg/dL02/17/2023 12:34 PM [facility] LABORATORYCholesterol/HDL Ratio3.1 02/17/2023 12:34 PM [facility] LABORATORYHours Lztnmdx22.08 - 12 Hours 02/17/2023 12:[address] [facility] LABSpecimen (Source)Anatomical Location / LateralityCollection Method / VolumeCollection TimeReceived TimeBlood Venipuncture / Mbywwzi3202/17/2023 9:06 AM CDT02/17/2023 9:06 AM CDT Narrative Authorizing ProviderResult TypeResult StatusJimmie JIANG_1Final Result Performing OrganizationAddressCity/State/ZIP CodePhone Number [facility] [address] [place] [address], [facility] [phone] [facility] [address] [place] [address], [facility] [phone] * Hepatitis C Antibody, with Reflex (02/17/2023 9:06 AM CDT)ComponentValueRef RangeTest MethodAnalysis TimePerformed AtPathologist SignatureHepatitis C AntibodyNegative (Non Reactive)Negative (Non Reactive)02/17/2023 4:04 PM CDT [facility]:Antibodies to HCV not detected. Does not exclude the possiblity of exposure to HCV.Specimen (Source)Anatomical Location / LateralityCollection Method / VolumeCollection TimeReceived TimeBlood Venipuncture / Ommmpov7802/17/2023 9:06 AM CDT02/17/2023 9:06 AM CDT Narrative Authorizing ProviderResult TypeResult StatusJimmie OH-PRINCE_1Final Result Performing OrganizationAddressCity/State/ZIP CodePhone Number [facility] [address] [place] [address], [facility] from Last 3 Months or Most Recently Relevant to Health Maintenance Insurance * Guarantor: Dean Dobbs TypeRelation to PatientDate of BirthPhone Billing AddressPersonal/LsmvktGnir[address] [place] [address] [place] [address]
--- NOTE | 2025-06-10 10:28 | ED_ITS ---
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 See onset of cold-like symptoms 2-3 days ago with a runny nose and cough. The cough has not been productive. He did have a low-grade temp of around 100 yesterday. Today he had the onset of chest pain. He describes this in the lower substernal area and the left upper chest. Cannot recall if it was during coughing or not. The pain does not exact ly radiate to his back but he does state he has back pain everywhere. Denies any lower extremity symptoms calf tenderness swelling or history of DVT. The chest pain started this morning and is much worse with coughing. Related Data Previous Rx's ?Medication ?Instructions ?Recorded oseltamivir 75 mg capsule (Tamiflu) 75 mg PO BID 5 day s #10 caps 06/10/25 Allergies Allergy/AdvReac Type Severity Reaction Status Date / Time Penicillins Allergy Verified 06/10/25 10:23 shellfish derived Allergy Verified 06/10/25 10:23 Sulfa (Sulfonamide Allergy Verified 06/10/25 10:23 Antibiotics) Review of Systems Status of ROS Reports: 10 or more systems reviewed and unremarkable except as noted in History and below Narrative no alcohol use, does vape. No drug use. Const Reports: fever and fatigue; Denies: chills Eyes Denies: change in vision or blurry vision ENMT Reports: nasal discharge and nasal congestion; Denies: throat pain, neck pain, throat swelling or difficulty swallowing Cardio Reports: chest pain; Denies: palpitations, swelling of feet/ankles, lightheadedness or shortness of breath with exertion Resp Reports: cough; Denies: shortness of breath GI Denies: abdominal pain, nausea, vomiting, diarrhea or difficulty swallowing Denies: painful urination Musculo Reports: back pain ( few); Denies: neck pain, extremity pain or extremity swelling Integ/Breast Denies: rash or itching Neuro Denies: headache or numbness in extremities Endo Reports: fatigue Allergy/Immuno Denies: throat swelling [facility] Medical History No significant past medical history Surgical History No significant past surgical history Social History Smoking Status: Former smoker Do you use any of these nicotine containing products: Vaping Products Second hand tobacco smoke exposure: No How often do you have a drink containing alcohol: never How often do you have six or more drinks on one occasion: Never AUDIT-C Alcohol total score: 0 Non-prescribed substance use: marijuana (any form) service: No Exam Narrative Exam Narrative: Alert and oriented. Somewhat tearful and anxious. External ears eyes nose clear. Moist mucous membranes. No exudate in the posterior oropharynx. Neck is supple. Mild lymphadenopathy on the right. Lungs are clear bilaterally Able to move extremities without difficulty.. Heart with regular rate and rhythm without murmur. Abdomen is soft nontender. Lower extremities without edema calf tenderness Homans sign is negative. Pedal pulses are symmetrical. Const Vital Signs, click to edit/add: Vital Signs - 24 hr 06/10/25 10:19 06/10/25 10:39 06/10/25 10:39 Temperature 100.1 F H Pulse Rate 92 Pulse Rate [Right Pulse Oximeter] 93 Respiratory Rate 18 Blood Pressure 122/83 Blood Pressure [Right Upper Arm] 117/74 Pulse Oximetry 98 99 99 Oxygen Delivery Method Room Air 06/10/25 10:40 06/10/25 10:45 06/10/25 11:00 Temperature Pulse Rate 101 H 97 85 Pulse Rate [Right Pulse Oximeter] Respiratory Rate 20 25 H Blood Pressure Blood Pressure [Right Upper Arm] Pulse Oximetry 98 98 100 Oxygen Delivery Method 06/10/25 11:01 06/10/25 11:15 06/10/25 11:30 Temperature Pulse Rate 87 86 90 Pulse Rate [Right Pulse Oximeter] Respiratory Rate 15 22 20 Blood Pressure 136/82 Blood Pressure [Right Upper Arm] Pulse Oximetry 100 96 100 Oxygen Delivery Method Room Air 06/10/25 11:31 06/10/25 11:45 06/10/25 12:00 Temperature Pulse Rate 89 87 85 Pulse Rate [Right Pulse Oximeter] Respiratory Rate 5 L Blood Pressure 123/97 H Blood Pressure [Right Upper Arm] Pulse Oximetry 100 95 94 Oxygen Delivery Method 06/10/25 12:01 06/10/25 12:15 06/10/25 12:30 Temperature Pulse Rate 87 Pulse Rate [Right Pulse Oximeter] Respiratory Rate 12 12 Blood Pressure 130/81 Blood Pressure [Right Upper Arm] Pulse Oximetry 94 Oxygen Delivery Method 06/10/25 12:31 06/10/25 13:00 06/10/25 13:01 Temperature Pulse Rate 88 86 Pulse Rate [Right Pulse Oximeter] Respiratory Rate 17 22 Blood Pressure 131/89 129/68 Blood Pressure [Right Upper Arm] Pulse Oximetry Oxygen Delivery Method Room Air Documenting provider has reviewed patient's vital signs: yes Course Course ED Course: Differential diagnosis includes but is not limited to COVID, pleurisy, URI, pneumothorax, acute coronary syndrome, angina, pericarditis, myocarditis. At this time do not think this is PE given reassuring oxygen level and no evidence of tachycardia. However, would need to include dissection as patient does have some back pain although this is not classic for dissection. Considering this due to family history. Will obtain CBC, basic, CRP, troponin, D-dimer. Have also obtained triple viral swab and will order chest x-ray, cardiac monitoring and oximetry. IV has been p laced. If initial point of care troponin is negative and D-dimer is reassuring will do a trial of Toradol. Vital Signs Vital signs: Initial Vital Signs Temperature 100.1 F H 06/10/25 10:19 Temperature Source Temporal Artery Scan 06/10/25 10:19 Pulse Rate 93 06/10/25 10:19 Pulse Rhythm Regular 06/10/25 10:19 Pulse Strength 3+ Normal 06/10/25 10:19 Respiratory Rate 18 06/10/25 10:19 Blood Pressure 117/74 06/10/25 10:19 Blood Pressure Mean 88 06/10/25 10:19 Blood Pressure Position Sitting 06/10/25 10:19 Pulse Oximetry 98 06/10/25 10:19 Oxygen Delivery Method Room Air 06/10/25 10:19 Vital Signs Temperature 100.1 F H 12/14/25 10:19 Pulse Rate 93 06/10/25 10:19 Respiratory Rate 18 06/10/25 10:19 Blood Pressure 117/74 06/10/25 10:19 Pulse Oximetry 98 06/10/25 10:19 Oxygen Delivery Method Room Air 06/10/25 10:19 Temperature 100.1 F H 06/10/25 10:19 Pulse Rate 86 06/10/25 13:01 Respiratory Rate 22 06/10/25 13:01 Blood Pressure 129/68 06/10/25 13:01 Pulse Oximetry 94 06/10/25 12:01 Oxygen Delivery Method Room Air 06/10/25 13:01 Medications Administered Medications: Discontinued Medications Generic Name Dose Route Start Last Admin Trade Name Gil PRN Reason Stop Dose Admin Ketorolac Tromethamine 15 mg 06/10/25 11:59 06/10/25 12:08 Ketorolac 15 Mg/Ml Inj IVP 06/10/25 12:00 15 mg ONCE ONE Administration MDM - Chest Pain MDM Narrative Medical decision making narrative: 1. Influenza a- patient has tested positive for influenza A. He tells me that is coughing started last night although the runny nose started on WednesdayJune 08. He is technically under the 48 hour suggestion for Tamiflu. He is willing to take Tamiflu. He did not receive a flu shot this year. Tamiflu 75 mg p.o. b.i.d. x5 days is sent to his pharmacy. He did receive Toradol 15 mg IV here appears to be improved. Fortunately electrolytes, white count reassuring. 2. Chest pain- EKG reassuring with no evidence of ST or T-wave changes. Troponin high sensitivity initially 3.2. Given the fact that this was under 3 hours have repeated the troponin. 2nd troponin 3.5 and thus no evidence of acute coronary syndrome. Given family history of aortic dissection D-dimer is negative at this time, we have an explanation for his discomfort, he has symmetrical pedal pulses and thus I do not think that this is aortic dissection. 3. Disposition -home at this time. Alternate Tylenol ibuprofen as needed for discomfort. Return for worsening symptoms and as needed. Note T-waves on EKG appeared to be somewhat peaked. Potassium is normal at 4.3. Medical Records Data Attestation: I reviewed the patient's medical records. Lab Data Attestation: I reviewed the patient's lab results. Labs: Lab Results 06/10/25 06/10/25 06/10/25 Range/Units 10:28 10:45 11:08 WBC 5.26 (4.50-11.00) K/uL RBC 4.79 (4.30-5.90) m/uL Hgb 14.5 (13.5-17.5) gm/dL Hct 42.8 (37.0-53.0) % MCV 89 (80-100) fL MCH 30 (26-34) pg MCHC 34 (32-36) gm/dL RDW Coeff of Duran 11.9 (11.5-15.5) % Plt Count 203 (140-440) K/uL Neut % (Auto) 79.3 H (42.0-72.0) % Lymph % (Auto) 8.9 L (20-44) % Nuckolls % (Auto) 10.8 (0.0-11.0) % Eos % (Auto) 0.4 (0.0-7.0) % Baso % (Auto) 0.4 (0.0-3.0) % Neut # (Auto) 4.20 (1.7-7.0) K/uL Lymph # (Auto) 0.50 L (0.90-2.90) K/uL Nuckolls # (Auto) 0.60 (0.00-0.90) K/UL Eos # (Auto) 0.02 (0.00-0.50) K/uL Baso # (Auto) 0.02 (0.00-0.30) K/uL Abs Immat Gran (auto) 0.01 (0.00-0.30) K/uL Imm/Tot Granulo (auto) 0.2 % D-Dimer Quant (PE/DVT) < 0.27 (0.00-0.50) ug/ml Sodium 136 (135-149) mmol/L Potassium 4.3 (3.6-5.1) mmol/L Chloride 102 (96-114) mmol/L Carbon Dioxide 30 (20-32) mmol/L Anion Gap 4 L (7-15) mEq/L BUN 9 (5-24) mg/dL Creatinine 0.8 (0.5-1.5) mg/dL Estimated GFR 115 ml/min Glucose 86 (60-115) mg/dL Calcium 9.3 (8.4-10.6) mg/dL Troponin I < 0.01 (0.01-0.04) ng/mL POC Troponin I High Sensi 3.5 (2.9-28.0) pg/mL C-Reactive Protein < 0.5 L (0.5-1.0) mg/dL SARS-CoV-2 (PCR) Negative SARS-CoV-2 (Negative) Influenza Type A (PCR) POSITIVE PCR FLU A A (Negative) Influenza Type B (PCR) Negative PCR FLU B (Negative) RSV (PCR) Negative PCR RSV (Negative) 06/10/25 Range/Units 12:32 WBC (4.50-11.00) K/uL RBC (4.30-5.90) m/uL Hgb (13.5-17.5) gm/dL Hct (37.0-53.0) % MCV (80-100) fL MCH (26-34) pg MCHC (32-36) gm/dL RDW Coeff of Duran (11.5-15.5) % Plt Count (140-440) K/uL Neut % (Auto) (42.0-72.0) % Lymph % (Auto) (20-44) % Nuckolls % (Auto) (0.0-11.0) % Eos % (Auto) (0.0-7.0) % Baso % (Auto) (0.0-3.0) % Neut # (Auto) (1.7-7.0) K/uL Lymph # (Auto) (0.90-2.90) K/uL Nuckolls # (Auto) (0.00-0.90) K/UL Eos # (Auto) (0.00-0.50) K/uL Baso # (Auto) (0.00-0.30) K/uL Abs Immat Gran (auto) (0.00-0.30) K/uL Imm/Tot Granulo (auto) % D-Dimer Quant (PE/DVT) (0.00-0.50) ug/ml Sodium (135-149) mmol/L Potassium (3.6-5.1) mmol/L Chloride (96-114) mmol/L Carbon Dioxide (20-32) mmol/L Anion Gap (7-15) mEq/L BUN (5-24) mg/dL Creatinine (0.5-1.5) mg/dL Estimated GFR ml/min Glucose (60-115) mg/dL Calcium (8.4-10.6) mg/dL Troponin I (0.01-0.04) ng/mL POC Troponin I High Sensi 3.5 (2.9-28.0) pg/mL C-Reactive Protein (0.5-1.0) mg/dL SARS-CoV-2 (PCR) (Negative) Influenza Type A (PCR) (Negative) Influenza Type B (PCR) (Negative) RSV (PCR) (Negative) Imaging Data Chest x-ray: Attestation: I have reviewed the pertinent imaging results. My impression: By my read no evidence of infiltrate. Radiologist's impression: Lungs and pleura: There are scattered areas of subsegmental atelectasis in the hilar regions and in the bilateral lower lobes. There is no lobar airspace c onsolidation, pleural effusion or pneumothorax. Heart/mediastinum: The heart size and mediastinal contours are normal. Osseous structures: No evidence of an acute abnormality. IMPRESSION: Scattered areas of subsegmental atelectasis in the hilar regions and bilateral lower lobes. No lobar airspace consolidation, pleural effusion or pneumothorax. ECG Data Attestation: I personally reviewed and interpreted this ECG as follows: ECG interpretation date: 06/10/25 Interpretation: By my read EKG shows sinus rhythm at a rate of 80. I do not note any acute ST or T-wave changes. T-waves did appear to be slightly peaked CA intervals and QT intervals within normal limits. Discharge Plan Discharge Clinical Impression: Influenza A Chest pain Qualifiers: Chest pain type: unspecified Qualified Code(s): R07.9 - Chest pain, unspecified Patient Disposition: Home, Self-Care Condition: Improved Additional Instructions: suggest alternating Tylenol and ibuprofen as needed for body aches. Push fluids as much as possible. Return for difficulty breathing, worsening symptoms. Tamiflu is an antiviral medication that can shorten the course of your illness and prevent complications of flu Quarantine yourself and especially avoid exposures in the elderly, infants, anybody or immune compromised Prescriptions: New oseltamivir [Tamiflu] 75 mg capsule 75 mg PO BID 5 Days Qty: 10 0RF Follow Up/Referrals: Provider,Not a Local [Primary Care Provider, Family Practice] Stand Alone Forms: [employer] Info Instructions
--- NOTE | 2025-06-10 10:48 | XR_ITS ---
Patient: NERISSA SALTER Facility:?[facility] Patient ID:?[id number] Site Patient ID:?[id number]. Site :?[id number] Study:?XRay-Chest PCXR-06/10/2025 11:00:47 AM Ordering Physician:?Lupe Goss Final Report: INDICATION: Chest pain. TECHNIQUE: X-ray chest one view COMPARISON: Chest x-ray 08/06/2024. FINDINGS: Lungs and pleura: There are scattered areas of subsegmental atelectasis in the hilar regions and in the bilateral lower lobes. There is no lobar airspace consolidation, pleural effusion or pneumothorax. Heart/mediastinum: The heart size and mediastinal contours are normal. Osseous structures: No evidence of an acute abnormality. IMPRESSION: Scattered areas of subsegmental atelectasis in the hilar regions and bilateral lower lobes. No lobar airspace consolidation, pleural effusion or pneumothorax. Dictated by Kenneth Schneider MD @ 06/10/2025 12:05:38 PM Signed by:?Kenneth Schneider MD @06/10/2025 12:05:38 PM (Electronic Signature)
[2025-06-10 10:53] LABS: Hematocrit* 42.8 % (37.0-53.0); Hemoglobin* 14.5 gm/dL (13.5-17.5); Immature Granulocytes Abs Auto 0.01 K/uL (0.00-0.30); Immature Granulocytes Pct Auto 0.2 %; Mean Corpuscular HGB Conc 34 gm/dL (32-36); Mean Corpuscular Hemoglobin 30 pg (26-34); Mean Corpuscular Volume 89 fL (80-100); RDW Coefficient of Variation % 11.9 % (11.5-15.5); Red Blood Count* 4.79 m/uL (4.30-5.90); White Blood Count* 5.26 K/uL (4.50-11.00)
[2025-06-10 11:03] LABS: Chloride* 102 mmol/L (96-114); Potassium* 4.3 mmol/L (3.6-5.1); Sodium* 136 mmol/L (135-149)
[2025-06-10 11:06] LABS: Anion Gap 4 mEq/L (7-15); Blood Urea Nitrogen* 9 mg/dL (5-24); Calcium* 9.3 mg/dL (8.4-10.6); Carbon Dioxide* 30 mmol/L (20-32); Creatinine* 0.8 mg/dL (0.5-1.5); Estimated Glomerular Filt Rate 115 ml/min; Glucose* 86 mg/dL (60-115)
[2025-06-10 11:12] LABS: D Dimer Quantitative* < 0.27 ug/ml (0.00-0.50)
[2025-06-10 11:18] LABS: PCR FLU A POSITIVE PCR FLU A (Negative); PCR FLU B Negative PCR FLU B (Negative); PCR RSV Negative PCR RSV (Negative); SARS PCR* Negative SARS-CoV-2 (Negative)
[2025-06-10 12:20] LABS: Lymphocytes Absolute Auto 0.50 K/uL (0.90-2.90)
[2025-06-10 12:21] LABS: Slide Review Reflex No
== END 2025-06-10 13:15 | disposition home or self-care (01) ==
PROVIDERS: Emergency Provider Family Medicine
DX: J10.1 Influenza due to other identified influenza virus with other respiratory manifestations (principal); R07.89 Other chest pain
CPT/HCPCS: 36415; 71045; 80048; 84484; 85025; 85379; 86140; 87631; 93005; 94761; 96374; 99284; 99285; J1885